=== PATIENT | female | born 1960 | race Caucasian/White ===

== ENCOUNTER 2020-01-14 15:14 | Outpatient (CLI) | payer OTHER, SELFPAY ==
--- NOTE | 2020-01-14 15:18 | MM_ITS ---
WS: [id number] BILATERAL DIGITAL SCREENING MAMMOGRAPHY WITH CAD CLINICAL INFORMATION: SCREENING HISTORY: Screening mammogram. No current complaints. COMPARISON: December 18, 2018 TECHNIQUE: Bilateral CC and MLO views. FINDINGS: Scattered fibroglandular densities bilaterally. No suspicious focal mass, asymmetry, calcifications, or architectural distortion. Stable left intramammary lymph node. No evidence of malignancy. MM/[id number] IMPRESSION: BI-RADS: 2-Benign FOLLOW UP: 1 Year Follow-up Recommend return to annual screening mammography.
== END 2020-01-14 15:15 | disposition home or self-care (01) ==
LOC: RADSHAW 15:14
PROVIDERS: Family Provider Family Medicine; PCP Family Medicine; Visit Provider Family Medicine
DX: Z12.31 Encounter for screening mammogram for malignant neoplasm of breast (principal)
CPT/HCPCS: 77067

== ENCOUNTER → 2020-05-23 10:13 | Outpatient (BNVA) | payer OTHER, SELFPAY | PROVIDERS: Family Provider Family Medicine; PCP Family Medicine; Visit Provider Dermatology | DX: D48.9 Neoplasm of uncertain behavior, unspecified (principal); L57.0 Actinic keratosis; L82.1 Other seborrheic keratosis; L98.9 Disorder of the skin and subcutaneous tissue, unspecified | CPT/HCPCS: 11102; 17000; 17003; 88305; 99203 ==

== ENCOUNTER → 2020-06-21 12:55 | Outpatient (BNVA) | payer OTHER, SELFPAY | PROVIDERS: Family Provider Family Medicine; PCP Family Medicine; Visit Provider Dermatology | DX: D03.9 Melanoma in situ, unspecified (principal); D48.9 Neoplasm of uncertain behavior, unspecified | CPT/HCPCS: 11602; 12034; 88304; 88305 ==

== ENCOUNTER → 2020-07-06 08:41 | Outpatient (BNVA) | payer OTHER, SELFPAY | PROVIDERS: Family Provider Family Medicine; PCP Family Medicine; Visit Provider Dermatology | DX: Z48.02 Encounter for removal of sutures (principal) | CPT/HCPCS: 99212 ==

== ENCOUNTER → 2020-07-12 07:59 | Outpatient (BNVA) | payer OTHER, SELFPAY | PROVIDERS: Family Provider Family Medicine; PCP Family Medicine; Visit Provider Dermatology | DX: Z48.02 Encounter for removal of sutures (principal) | CPT/HCPCS: 99024 ==

== ENCOUNTER 2021-02-14 14:44 | Outpatient (CLI) | payer OTHER, SELFPAY ==
--- NOTE | 2021-02-14 14:48 | MM_ITS ---
WS: [id number] BILATERAL SCREENING DIGITAL MAMMOGRAM WITH CAD HISTORY: SCREENING COMPARISON: 01/14/2020 12/18/2018 Bilateral CC and MLO views submitted. Computer aided detection analyzed. Breast composition: There are scattered areas of fibroglandular density. No suspicious masses, microc alcifications or architectural distortion. Small cluster of lymph nodes in the upper outer quadrant a re stable over multiple prior years. MM/[id number] IMPRESSION: BI-RADS: 2-Benign FOLLOW UP: 1 Year Follow-up
== END 2021-02-14 14:45 | disposition home or self-care (01) ==
LOC: RADSHAW 14:46
PROVIDERS: PCP Family Medicine; Visit Provider Family Medicine
DX: Z12.31 Encounter for screening mammogram for malignant neoplasm of breast (principal)
CPT/HCPCS: 77067

== ENCOUNTER → 2021-08-31 10:37 | Outpatient (BNVA) | payer OTHER, SELFPAY | PROVIDERS: PCP Family Medicine; Visit Provider Surgery | DX: Z20.822 Contact with and (suspected) exposure to COVID-19 (principal) | CPT/HCPCS: 87635 ==

== ENCOUNTER 2021-09-06 07:57 | Day surgery (SDC) | payer OTHER, SELFPAY ==
[2021-09-01 14:16] VITALS: BMI 30.5
--- NOTE | 2021-09-06 08:11 | ANES.PREANE2 ---
Pre-Anesthetic Assessment Pre-Anesthetic Assessment: Height/Weight: Height 1.7 m Weight 88.451 kg Preop Diagnosis: screening Proposed Procedure: Operation Date: 09/06/21 09:30 Proposed Procedures p Colonoscopy 15425 Z12.11(Not Applicable) - Vamsi Ahn MD Familial anesthetic complications: none Last intake: > 8 hrs Social: Social History: No alcohol and No tobacco Exam: Pre-Anes Outpt Exam: alert, oriented x 3, clear to auscultation bilaterally and regular rate & rhythm Airway: MP: 3 Dentition: Full GI: Comments: gastric sleeve Metabolic: Metabolic: Thyroid Anesthetic Plan: ASA status: 2 Anesthesia: MAC Risk of > 500 ml blood loss (7ml/kg in children): No PFSH Anesthesia PFSH: Medical History Thyroid crisis Surgical History H/O thyroidectomy H/O: hysterectomy Social History Smoking and tobacco status: never smoked Alcohol intake: never Data Anesthesia Cardiac Studies: No Data to Display
--- NOTE | 2021-09-06 08:28 | W.PM.OPSFHP ---
Same Day Surgery H&P Indication for Procedure/HPI DATE OF PROCEDURE: September 06, 2021 CHIEF COMPLAINT/INDICATIONFOR SURGICAL PROCEDURE: Screening colonoscopy PREOP DIAGNOSIS: screening PLANNED PROCEDRUE: Operation Date: 09/06/21 09:30 Proposed Procedures p Colonoscopy 93542 Z12.11(Not Applicable) - Vamsi Ahn MD This is a 61 years old female patient referred to my practice for screening colonoscopy, patient reports that she had one about 10 years ago and was reported as normal. Denies history of colon cancer and no bleeding per rectum. Intentional weight loss based on the fact that the patient had laparoscopic vertical sleeve gastrectomy per her description in [place] and her primary care provider is aware of that. ROS All systems have been reviewed negative except as per the above or per problem list Medications/Allergies* Home Medications Medication Instructions Recorded Confirmed Type estradiol 1 mg tablet 1 mg PO DAILY 05/23/20 09/01/21 History levothyroxine 125 mcg capsule 125 mcg PO DAILY 05/23/20 09/01/21 History Allergies/Adverse Reactions Allergy/AdvReac Type Severity Reaction Status Date / Time No Known Allergies Allergy Verified 02/28/21 15:20 Pertinent History/Comorbid Conditions* Medical History (Updated 10/18/20 @ 11:17 by Isabella Del Toro DO) Thyroid crisis Surgical History (Updated 10/18/20 @ 11:17 by Isabella Del Toro DO) H/O thyroidectomy H/O: hysterectomy Social History Smoking and tobacco status: never smoked Alcohol intake: never Pertinent Exam Findings alert, oriented x 3, clear to auscultation bilaterally, regular rate & rhythm and procedure specific exam findings (Abdominal examination nontender nondistended soft obese) Recommendations Surgery/Procedure today (Colonoscopy with possible biopsy) Other Plans: Plan of care; After thorough history and physical examination and reviewing the chart, plan to perform screening colonoscopy. I discussed with the patient in details the risks,benefits,alternatives and indications.The risk of aspiration, bleeding, soft tissue injury, perforation of the colon and other potential concomitant complications were explained to the patient in details,also the potential need for Laproscoy/Laparotomy to repair any related complications including but not limited to colectomy and or Closotomy.The patient understood this well and did agree to proceed. Rationale was carefully and clearly discussed with the patient.Appropriate informed consent have been reviewed and signed All questions have been answered and all concerns have been addressed to patient's satisfaction. Verbal and written Instructions were given to the patient for colonoscopy prep Coding Level of Care Code Acute Enterprise Systems Architect for Dada Nugent
[2021-09-06 08:42] VITALS: BP 137/87; PULSE 63; RESP 18; TEMP 36.3; O2SAT 100
[2021-09-06] MEDS: sodium chloride 0.9% 1,000 ML 30 ML IV (08:53)
[2021-09-06 10:01] VITALS: BP 104/74; PULSE 57; RESP 16; TEMP 36.1; O2SAT 99
[2021-09-06 10:17] VITALS: BP 102/56; PULSE 56; RESP 18; O2SAT 98
--- NOTE | 2021-09-06 14:31 | ANE.PACU2 ---
Inpatient post-anesthesia follow up: Airway intact: Yes Vital signs: Temperature 97 F Pulse Rate 56 Respiratory Rate 18 Blood Pressure 102/56 Pulse Oximetry 98 Oxygen Delivery Me thod Room Air Oxygen Flow Rate Fraction of Inspir ed Oxygen Hydration adequate: Yes Nausea and vomiting: No Pain level: 2 Mental status: Baseline
== END 2021-09-06 10:31 | disposition home or self-care (01) ==
PROVIDERS: PCP Family Medicine; Visit Provider Surgery
PROC: 0DJD8ZZ Inspection of Lower Intestinal Tract, Via Natural or Artificial Opening Endoscopic (ICD-10-PCS; CPT 45378; principal; 2021-09-06 09:30)
DX: Z12.11 Encounter for screening for malignant neoplasm of colon (principal)
CPT/HCPCS: 45380; 88305; 96360; J2704; J7030

== ENCOUNTER → 2022-03-06 15:15 | Outpatient (BNVA) | payer OTHER, SELFPAY | PROVIDERS: PCP Family Medicine; Referring Provider Family Medicine; Visit Provider Podiatrist Foot & Ankle Surgery | DX: M79.671 Pain in right foot (principal) | CPT/HCPCS: 73630 ==

== ENCOUNTER 2022-03-30 05:47 | Day surgery (SDC) | payer OTHER, SELFPAY ==
--- NOTE | 2022-03-10 | SCC_ITS ---
Procedure done: Flexor to extensor tendon transfer right foot second, third and fourth toes. CPT code 45098 x3 Proximal interphalangeal joint arthrodesis right second, third and fourth toes. CPT code 31791 x3 Fluoroscopic guidance was provided to Dr. Saeed. C-arm images of the right foot were saved for the patient's permanent record. [facility]ITAL[facility]
[2022-03-29 14:43] VITALS: BMI 28.1
--- NOTE | 2022-03-30 05:56 | P.HP_ITS ---
Providers/Chief Complaint Primary Care Provider: Eladio Guillermo MD History of Present Illness Shirley Jackson is a 62 year old female presents to with complaints of painful crossover toe right foot is more severe than left.? Her right third toe is overriding the fourth toe and she has pain at the hammertoe contractures of toes 2, 3 and 4 the right foot.? She has minor discomfort occasionally on hammertoes of the left foot this is of lesser concern to her.? 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 Still leads a very active lifestyle outside of work.? Her right foot pain is affecting her everyday quality of life and would like to discuss surgical correction.? She has a history of bunionectomy approximately 20 years ago left and right foot.? Patient denies any subjective nausea, vomiting, fever, chills, shortness of breath or chest pain.? Review of Systems General: Reports: 10 or more systems reviewed and unremarkable except in HPI and below Const: Denies: fever(s) or chills Eyes: Denies: change in vision Card: Denies: chest pain or palpitations Resp: Denies: dyspnea or productive cough GI: Denies: abdominal pain, nausea or vomiting : Denies: flank pain Musc: Reports: extremity pain, joint pain, joint stiffness, limited range of motion and deformity Skin/Breast: Reports: skin tenderness; Denies: rash Neuro: Reports: difficulty walking; Denies: numbness in extremities, sensory changes or frequent falls Psych: Denies: suicidal ideation Rick/Lymph: Denies: easy bruising Medications/Allergies Home Medications Medication Instructions Recorded Confirmed Last Taken Type estradiol 1 mg tablet (Estrace) 1 mg PO DAILY 05/23/20 03/29/22 09/04/21 History levothyroxine 125 mcg capsule 125 mcg PO DAILY 05/23/20 03/29/22 09/04/21 History Allergies Allergy/AdvReac Type Severity Reaction Status Date / Time oxycodone [From Percocet] AdvReac ADR-Vomitin Verified 03/29/22 14:39 g PFSH PFSH: Medical History Anal polyp Thyroid crisis Surgical History H/O thyroidectomy H/O: hysterectomy S/P gastric sleeve procedure Social History Smoking and tobacco status: never smoked Alcohol intake: never Vital Signs Weight: Weight last 48 hrs Weight 180 lb Physical Exam Narrative: EXAM NARRATIVE: Patient is alert and oriented ?3 and in no acute distress.? The following is a focused bilateral lower extremity exam. VASCULAR: Dorsalis pedis and posterior tibial arteries palpable +2.? Capillary refill time less than 3 seconds to the distal hallux bilaterally. Calf is supple and nontender proximally and distally.? No pedal edema appreciated.? Pedal hair growth present. NEUROLOGICAL: Epicritic and protopathic sensations grossly intact to the lower extremities.? +2 Achilles tendon reflex noted bilaterally.? Negative Tinel sign upon percussion of lower extremity nerves. DERMATOLOGICAL: Lower extremity skin is well-hydrated, normal texture and turgor.? There are no open sores or lesions noted to the lower extremities.? No erythema or ecchymosis present to the bilateral legs and feet.? Cicatrix to the first metatarsophalangeal joint left and right that is well-healed. MUSCULOSKELETAL: Pain to palpation at right second, third and fourth toe.? Right third toe overrides the fourth toe.? Nonreducible hammertoe contracture with triplane component to the right second, third and fourth toe.? Hammertoe contracture of the right fifth toe that is nonpainful.? Mild hallux valgus.? No recurrence of bunion deformity.? Mild collapse of the medial longitudinal arch which is recreated with elevation of the hallux. CARDIOVASCULAR: S1, S2, normal rate, normal rhythm. Dorsalis pedis and posterior tibial arteries palpable. LUNGS: Clear to auscltation, no use of acessory muscles, no crackles or wheezes. A&P Assessment and plan (1) Hammertoe, bilateral: Status: Acute (2) Crossover toe deformity of right foot: Status: Acute (3) Right foot pain: Status: Acute Plan Pleasant 61-year-old female presents as a new patient for surgical consultation of right painful hammertoe deformities toes 2, 3 and 4.? Has exhausted conservative measures prior to seeking surgical consultation, wears wide accommodative shoes, utilizing spacers and padding, wears orthopedic sandals.? Pain is been progressive especially the right third toe and is now affecting her overall quality of life.? She would like to discuss surgical approach, risks and benefits.? Recommended proximal interphalangeal joint arthroplasty with implant and flexor tendon transfer.? 6 weeks protected weightbearing in a cam boot with low levels of activity and would likely require K wire fixation that can be removed in clinic approximately 4 to 6 weeks postoperatively.? Patient would like to proceed with surgical intervention. Discussed risks include but not limited to pain, bleeding, numbness, infection, hardware failure, delayed union, malunion, nonunion, overcorrection of deformity, under correction deformity, numbness, chronic swelling and need for further surgical intervention. Also risk for deep vein thrombosis, heart attack, stroke and . Patient n.p.o. since midnight. Wishes to proceed. Right second, third and fourth hammertoe correction. joseph POTTS, supine, 90 minutes Coding Level of Care Code Acute Fence Making Machine Operator for g Fwd Diagnoses Hammertoe, bilateral M20.41; M20.42 Crossover toe deformity of right foot M20.5X1 Right foot pain M79.671
[2022-03-30 06:00] VITALS: BP 144/82; PULSE 61; RESP 18; TEMP 36.5; O2SAT 100
--- NOTE | 2022-03-30 06:05 | W.PM.OPSUD ---
Surgery/Procedure H&P Update DATE OF PROCEDURE: March 30, 2022 DATE H&P PERFORMED: 03/30/22 CHANGES TO PREVIOUS DOCUMENTATION: None PREOP DIAGNOSIS: Right second, third and fourth hammertoe PLANNED PROCEDURE: Operation Date: 03/30/22 07:00 Proposed Procedures p Hammertoe correction second, third, fourth toes right foot.[id number], 10266x9, M20.41,M20.5X1(Right) - Jorge Alberto Saeed DPM
[2022-03-30] MEDS: sodium chloride 0.9% 1,000 ML 30 ML IV (06:10)
[2022-03-30] MEDS: CELEcoxib 200 mg Capsule 400 MG PO (06:10)
[2022-03-30] MEDS: gabapentin 300 mg Capsule PO (06:11)
--- NOTE | 2022-03-30 06:52 | ANES.PREANE2 ---
Pre-Anesthetic Assessment Height/Weight: Height 1.7 m Weight 81.647 kg Temp Pulse Resp BP Pulse Ox 97.7 F 61 18 144/82 100 03/30/22 06:00 03/30/22 06:00 03/30/22 06:00 03/30/22 06:00 03/30/22 06:00 Preop Diagnosis: Right second, third and fourth hammertoe Operation Date: 03/30/22 07:00 Proposed Procedures p Hammertoe correction second, third, fourth toes right foot.[id number], 25814m2, M20.41,M20.5X1(Right) - Jorge Alberto Saeed DPM Familial anesthetic complications: None Was Beta Michael taken within 24 hours: N/A Was Clonidine taken within 24 hours: N/A Last intake: Intake Last Liquid Date 03/29/22 Last Liquid Time 19:00 Last Solid Date 03/29/22 Last Solid Time 19:00 Social No alcohol and No tobacco Exam alert, oriented x 3, clear to auscultation bilaterally and regular rate & rhythm Airway Submandibular: within normal limits Cervical ROM: within normal limits Mallampati: Class I Dentition: full History/ROS No significant complaints Pulmonary None reported CV/HEM None reported None reported Hepatic None reported GI s/p gastric sleeve Metabolic Thyroid Disease (s/p thyroidectomy ) [facility] [place]/[facility] None reported Neuropsych None reported Anesthetic Plan ASA status: 2 Anesthesia: Anesthesia Evaluation and General Other: We discussed risk and benefits of general anesthesia including PONV, sore throat (sometimes severe), corneal abrasion, positioning and peripheral nerve injuries, life threatening allergic reaction, post operative ICU admission requiring prolonged intubation, stroke, heart attack, , and rare incidences of recall. Patient consents to proceed with general anesthesia. Risk of > 500 ml blood loss (7ml/kg in children): No Medications/Allergies Home Medications Medication Instructions Recorded Confirmed Last Taken Type estradiol 1 mg tablet (Estrace) 1 mg PO DAILY 05/23/20 03/29/22 03/29/22 History levothyroxine 125 mcg capsule 125 mcg PO DAILY 05/23/20 03/29/22 03/29/22 History hydrocodone 10 mg-acetaminophen 1 tab PO Q4H 7 Days #30 tab 03/30/22 Unknown Rx 325 mg tablet Allergies Allergy/AdvReac Type Severity Reaction Status Date / Time oxycodone [From Percocet] AdvReac ADR-Vomitin Verified 03/29/22 14:39 g Current Medications Generic Name Dose Route Start Last Admin Trade Name Freq PRN Reason Stop Dose Admin Sodium Chloride 1,000 mls @ 30 mls/hr 03/30/22 06:00 03/30/22 06:10 Sodium Chloride 0.9% IV 03/31/22 05:59 30 mls/hr .Q24H YARON Administration PFSH Anesthesia Medical History Anal polyp Thyroid crisis Surgical History H/O thyroidectomy H/O: hysterectomy S/P gastric sleeve procedure Social History Smoking and tobacco status: never smoked Alcohol intake: never Data Anesthesia Cardiac Studies: No Data to Display
[2022-03-30] MEDS: lidocaine 2% INJ 20 mL INJECTION (07:10)
--- NOTE | 2022-03-30 08:00 | XR_ITS ---
WS: [id number] Exam: XR foot RT min 3V* [id number] Date/Time of Exam: 03/30/2022 8:00 AM Reason For Exam: Post op Comparison 03/06/2022. There are joint replacements involving the PIP joints of the second third and fourth toes. Alignment appears satisfactory based on images presented. A healed osteotomy of the first metatarsal with screw fixation noted. Remaining aspects of the right foot are intact. XR/XR foot RT min 3V* [id number] IMPRESSION: 1. Stable-appearing postoperative changes of the foot as detailed above.
[2022-03-30 08:14] VITALS: BP 94/61; PULSE 59; RESP 16; TEMP 36.3; O2SAT 97
[2022-03-30 08:27] VITALS: BP 107/53; PULSE 53; RESP 18; TEMP 36.1; O2SAT 97
--- NOTE | 2022-03-30 08:53 | ANE.PACU2 ---
Inpatient post-anesthesia follow up: Airway intact: Yes Vital signs: Temperature 97.0 F Pulse Rate 53 Respiratory Rate 18 Blood Pressure 107/53 Pulse Oximetry 97 Oxygen Delivery Me thod Room Air Oxygen Flow Rate Fraction of Inspir ed Oxygen Hydration adequate: Yes Nausea and vomiting: No Pain level: 1 Mental status: Baseline
[2022-03-30 08:56] VITALS: BP 108/71; PULSE 69; RESP 18; O2SAT 97
--- NOTE | 2022-04-03 12:26 | P.OP_ITS ---
Operative Report Date of procedure: March 30, 2022 Pre-op diagnosis: Hammertoe deformity right second, third and fourth toes. Post-op diagnosis: Same Post-op findings: None Procedure done: Flexor to extensor tendon transfer right foot second, third and fourth toes. CPT code 98541 x3 Proximal interphalangeal joint arthrodesis right second, third and fourth toes. CPT code 24842 x3 Implants: Kanab 28 2.75 mm hammer tube with 10 degree angle x3. 4-0 nylon, 4-0 Vicryl. Specimens removed/disposition: None Pathology: None Surgeon: Jorge Alberto Saeed D.P.M. Property Insurance Agent: Jeromy Estimated blood loss: 5 See intraoperative documentation IV fluids: None Urine output: None Complications: None Findings: None Brief History: Pleasant 61-year-old female presents as a new patient for surgical consultation of right painful hammertoe deformities toes 2, 3 and 4.? Has exhausted conservative measures prior to seeking surgical consultation, wears wide accommodative shoes, utilizing spacers and padding, wears orthopedic sandals.? Pain is been progressive especially the right third toe and is now affecting her overall quality of life.? She would like to discuss surgical approach, risks and benefits.? Recommended proximal interphalangeal joint arthroplasty with implant and flexor tendon transfer.? 6 weeks protected weightbearing in a cam boot with low levels of activity and would likely require K wire fixation that can be removed in clinic approximately 4 to 6 weeks postoperatively.? Patient would like to proceed with surgical intervention.? Discussed risks include but not limited to pain, bleeding, numbness, infection, hardware failure, delayed union, malunion, nonunion, overcorrection of deformity, under correction deformity, numbness, chronic swelling and need for further surgical intervention.? Also risk for deep vein thrombosis, heart attack, stroke and .? Patient n.p.o. since midnight.? Wishes to proceed. Procedure: Under mild sedation the patient was brought to the operating room and remained on the gurney in supine position. Timeout was performed. Anesthesia was then administered by the anesthesia service. Local anesthesia was injected by myself consisting of one-to-one mixture 2% lidocaine and 0.25% Marcaine plain total of 30 cc utilized for a second, third and fourth ray block to the right foot. We ll-padded pneumatic tourniquet applied to the right ankle. The right lower extremity was scrubbed, prepped and draped utilizing normal aseptic technique. Right foot was then exanguinated with a Esmarch bandage and the tourniquet inflated to 250 mmHg. Attention was directed to the dorsal aspect of the right second, third and fourth toes where a linear longitudinal incision was made directly over the proximal interphalangeal joint coursing proximally to the metatarsal phalangeal joint to the right second, third and fourth toes respectively. Dissection carried down to the extensor tendon dorsally at the right second, third and fourth toes utilizing a combination of blunt and sharp technique. Care was taken to retract and preserve neurovascular and tendinous structures. All bleeders were ligated and cauterized as necessary. A transverse tenotomy of the extensor tendons were is performed at the right second, third and fourth toes at the level of the proximal interphalangeal joint followed by resection of the proximal phalanx head of the right second, third and fourth proximal phalanx and denuding of the cartilage surface of the intermediate phalanx base utilizing a rongeur of the right second, third and fourth intermediate phalanx base. Incisions were flushed with saline solution. The arthrodesis site was then retracted and flexor digitorum brevis tendon was identified and longitudinally to gain access to the flexor digitorum longus tendon which was transected at its most distal margin at the right second, third and fourth toes. The flexor digitorum longus tendon was then split longitudinally proximally and brought around the phalanx of the second, third and fourth toes respectively and sutured back together successfully transferring the flexor digitorum longus tendon to the extensor tendon position to address flexor stabilization and underlying mechanical root of the hammertoe deformity. This also helped the sagittal plane deformity of digits 2, 3 and 4 the right foot. Tendons of the second, third and fourth tendon transfers sutured with 4-0 nylon with excellent tension and correction of the sagittal plane component of hammertoes 2, 3 and 4 of the right foot. Incisions were then flushed again with saline solution. Next utilizing standard technique and manufacture recommendations a Kanab 28 hammer tube 2.75 mm in diameter with 10 degree angle was inserted in the proximal phalanx head followed by impaction of the intermediate phalanx with excellent bony apposition and compression noted at the proximal interphalangeal joint arthrodesis site of the right second, third and fourth toes. Second, third and fourth toes of the right foot were appreciated to be in a more anatomically correct position both intraoperatively with simulated weightbearing on flat weightbearing surface and with fluoroscopy in all 3 planes noting that intramedullary placement was excellent on right second, third and fourth toes. Further irrigation was performed with saline solution followed by closure in a layered fashion. The extensor tendons were reapproximated utilizing 4-0 Vicryl at the second, third and fourth toes of the right foot. Skin was then closed with 4-0 nylon. Incisions of the right second, third and fourth toes were dressed with Adaptic, sterile 4 x 4, Kerlix and Bridger wrap. Cam boot was applied and tourniquet was deflated with a prompt hyperemic response noted to all distal digits of the right foot. Patient tolerated the procedure and anesthesia well and was transferred to the PACU with vital signs stable and vascular status intact. Following a period of postop monitoring she will be discharged home may be weightbearing for transfers and short periods of time with a cam boot at all times. Will follow-up for her first dressing change in podiatry clinic next week.
== END 2022-03-30 09:10 | disposition home or self-care (01) ==
PROVIDERS: PCP Family Medicine; Visit Provider Podiatrist Foot & Ankle Surgery
PROC: (CPT 28285; principal; 2022-03-30 07:00)
DX: M20.41 Other hammer toe(s) (acquired), right foot (principal); M20.5X1 Other deformities of toe(s) (acquired), right foot
CPT/HCPCS: 27690 ×4; 73630; 76000; C1713; J2704; J3010; J3490; J7030

== ENCOUNTER → 2022-04-12 12:36 | Outpatient (BNVA) | payer OTHER, SELFPAY | PROVIDERS: PCP Family Medicine; Visit Provider Podiatrist Foot & Ankle Surgery | DX: Z98.890 Other specified postprocedural states (principal) | CPT/HCPCS: 73630 ==

== ENCOUNTER 2022-04-17 14:59 | Outpatient (CLI) | payer OTHER, SELFPAY ==
--- NOTE | 2022-04-17 15:06 | MM_ITS ---
WS: [id number] BILATERAL 3D TOMOSYNTHESIS DIGITAL SCREENING MAMMOGRAPHY WITH CAD CLINICAL INFORMATION: SCREEN HISTORY: Screening mammogram. No current complaints. COMPARISON: February 14, 2021 TECHNIQUE: Bilateral CC and MLO views. FINDINGS: Scattered fibroglandular densities bilaterally. Coarse calcifications subareolar RIGHT breast. No stephany picious focal mass, asymmetry, calcifications, or architectural distortion. No evidence of malignancy . MM/[place] [id number] IMPRESSION: BI-RADS: 2-Benign FOLLOW UP: 1 Year Follow-up Recommend return to annual screening mammography.
== END 2022-04-17 15:00 | disposition home or self-care (01) ==
LOC: RAD 15:00
PROVIDERS: PCP Family Medicine; Visit Provider Family Medicine
DX: Z12.31 Encounter for screening mammogram for malignant neoplasm of breast (principal)
CPT/HCPCS: 77063; 77067

== ENCOUNTER → 2022-04-25 14:42 | Outpatient (BNVA) | payer OTHER, SELFPAY | PROVIDERS: PCP Family Medicine; Visit Provider Podiatrist Foot & Ankle Surgery | DX: Z98.890 Other specified postprocedural states (principal) | CPT/HCPCS: 73630 ==

== ENCOUNTER → 2022-05-10 12:52 | Outpatient (BNVA) | payer OTHER, SELFPAY | PROVIDERS: PCP Family Medicine; Visit Provider Podiatrist Foot & Ankle Surgery | DX: Z98.890 Other specified postprocedural states (principal) | CPT/HCPCS: 73630 ==

== ENCOUNTER → 2022-06-21 12:55 | Outpatient (BNVA) | payer OTHER, SELFPAY | PROVIDERS: PCP Family Medicine; Visit Provider Podiatrist Foot & Ankle Surgery | DX: Z98.890 Other specified postprocedural states (principal) | CPT/HCPCS: 73630 ==

== ENCOUNTER 2023-04-24 15:20 | Outpatient (CLI) | payer OTHER, SELFPAY ==
--- NOTE | 2023-04-24 15:27 | MM_ITS ---
WS: [id number] BILATERAL 3D TOMOSYNTHESIS DIGITAL SCREENING MAMMOGRAPHY WITH CAD CLINICAL INFORMATION: SCREENING HISTORY: Screening mammogram. No current complaints. COMPARISON: 2021 TECHNIQUE: Bilateral CC and MLO views. FINDINGS: Scattered fibroglandular densities bilaterally. No suspicious focal mass, asymmetry, calcifications, or architectural distortion. No evidence of malignancy. Stable coarse calcifications subareolar RIGHT breast. MM/[place] [id number] IMPRESSION: BI-RADS: 2-Benign FOLLOW UP: 1 Year Follow-up Recommend return to annual screening mammography.
== END 2023-04-24 15:21 | disposition home or self-care (01) ==
PROVIDERS: PCP Family Medicine; Visit Provider Family Medicine
DX: Z12.31 Encounter for screening mammogram for malignant neoplasm of breast (principal)
CPT/HCPCS: 77063; 77067

== ENCOUNTER → 2024-04-07 07:47 | Outpatient (BNVA) | payer OTHER, SELFPAY | PROVIDERS: PCP Family Medicine; Referring Provider Family Medicine; Visit Provider Student in an Organized Health Care Education/Training Program | DX: M25.511 Pain in right shoulder (principal); M75.41 Impingement syndrome of right shoulder | CPT/HCPCS: 73030 ==

== ENCOUNTER 2024-04-29 10:13 | Outpatient (CLI) | payer OTHER, SELFPAY ==
--- NOTE | 2024-04-29 10:18 | MM_ITS ---
WS: [id number] BILATERAL SCREENING DIGITAL TOMOSYNTHESIS MAMMOGRAM WITH CAD HISTORY: SCREENING COMPARISON: 04/24/2023, 04/17/2022 and 02/14/2021 Bilateral CC and MLO views with tomosynthesis and synthetic mammography submitted. Computer aided det ection analyzed. Breast composition: There are scattered areas of fibroglandular density. No suspicious masses, microc alcifications or architectural distortion. Benign dystrophic calcification in the anterior RIGHT [address]. No suspicious mass or calcification. MM/[place] [id number] IMPRESSION: BI-RADS: 2-Benign FOLLOW UP: 1 Year Follow-up
== END 2024-04-29 10:14 | disposition home or self-care (01) ==
PROVIDERS: PCP Family Medicine; Visit Provider Family Medicine
DX: Z12.31 Encounter for screening mammogram for malignant neoplasm of breast (principal)
CPT/HCPCS: 77063; 77067

== ENCOUNTER → 2024-06-23 08:03 | Outpatient (BNVA) | payer OTHER, SELFPAY | PROVIDERS: PCP Family Medicine; Visit Provider Family Medicine | DX: E11.9 Type 2 diabetes mellitus without complications (principal); E03.9 Hypothyroidism, unspecified; M17.12 Unilateral primary osteoarthritis, left knee | CPT/HCPCS: 80053; 80061; 84443 ==

== ENCOUNTER → 2024-07-21 08:52 | Outpatient (BNVA) | payer OTHER, SELFPAY | PROVIDERS: PCP Family Medicine; Visit Provider Physician Assistant | DX: M17.12 Unilateral primary osteoarthritis, left knee (principal); M25.561 Pain in right knee; M25.562 Pain in left knee | CPT/HCPCS: 73560; 73565 ==

== ENCOUNTER 2024-07-21 14:46 | Outpatient (CLI) | payer OTHER, SELFPAY | END 2024-07-21 14:47 | disposition home or self-care (01) | LOC: SPT 14:48 | PROVIDERS: PCP Family Medicine; Visit Provider Physician Assistant | DX: Z46.89 Encounter for fitting and adjustment of other specified devices (principal); M17.12 Unilateral primary osteoarthritis, left knee | CPT/HCPCS: 97760; L1851 ==

== ENCOUNTER 2024-08-18 15:49 | Outpatient (CLI) | payer OTHER, SELFPAY ==
--- NOTE | 2024-08-18 16:00 | MR_ITS ---
WS: [id number] MRI RIGHT SHOULDER NONCONTRAST TECHNIQUE: Sagittal T2, coronal T1, T2 and proton density imaging. Axial gradient PDE imaging. CLINICAL INFORMATION: right shoulder pain COMPARISON: None. FINDINGS: Moderate degenerative arthritis AC joint with moderate downsloping acromion. Loss of subacromial spac e. Chronic thinning with high-grade tear of the distal supraspinatus. Tendon appears retracted to the AC joint. Partial-thickness tear involving the infraspinatus with chronic thinning. Tendinopathy inf raspinatus. Teres minor appears intact. Tendinopathy with partial intrasubstance tear involving the subscapularis tendon. Biceps tendon absen t from the proximal bicipital groove likely due to chronic tear. Tiny biceps tendon remnant distally. Moderate degenerative narrowing glenohumeral articulation. Degenerative fraying of the glenoid labru m. Atrophy with fatty replacement of the subscapularis muscle belly. Fatty atrophy of the supraspinat us infraspinatus and teres minor. MR/MR shoulder RT wo con* [id number] IMPRESSION: 1. Moderate degenerative arthritis AC joint with moderate downsloping acromion . Loss of the subacromial space. 2. Chronic thinning of the distal supraspinatus and infraspinatus. High-grade tear of the distal supraspinatus extending to the myotendinous junction. Distal tendon appears retracted to the AC joint 3. Tendinopathy infraspinatus with partial intrasubstance tear extending to th e myotendinous junction. Distal infraspinatus appears intact. 4. Tendinopathy with partial intrasubstance tear of the subscapularis. Fatty a trophy of the subscapularis muscle. 5. Tiny biceps remnant in the bicipital groove likely due to chronic tear. Poo rly visualized intra-articular biceps tendon.
== END 2024-08-18 15:50 | disposition home or self-care (01) ==
LOC: RAD 15:50
PROVIDERS: PCP Family Medicine; Visit Provider Physician Assistant
DX: M75.41 Impingement syndrome of right shoulder (principal); M19.011 Primary osteoarthritis, right shoulder; M75.91 Shoulder lesion, unspecified, right shoulder; M75.112 Incomplete rotator cuff tear or rupture of left shoulder, not specified as traumatic
CPT/HCPCS: 73221

== ENCOUNTER 2024-08-21 15:34 | Outpatient (CLI) | payer OTHER, SELFPAY ==
--- NOTE | 2024-08-21 15:35 | XRR_ITS ---
PROCEDURE INFORMATION: Exam: XR Right Foot Exam date and time: 08/21/2024 3:42 PM Age: 64 years old Clinical indication: Pain; Foot; Right; Prior surgery; Surgery date: 6+ months; Surgery type: Hammertoe, bunionectomy; Patient HX: RT 2nd/3rd digits deformed post hammertoe repair x 2yrs ago; Additional info: M79.671 - pain in right foot, weight bearing or non weight bearing is fine. TECHNIQUE: Imaging protocol: Radiologic exam of the right foot. Views: 3 or more views. COMPARISON: CR XR foot RT min 3V* [id number] 06/21/2022 1:00 PM FINDINGS: Bones/joints: Stable changes consistent with a previous osteotomy at the right 1st metatarsal and stable. No evidence for loosening of the surgical hardware. Stable changes consistent with prior joint replacement at the 2nd, 3rd, and 4th PIP joints. No evidence for loosening of the surgical hardware. No acute fracture. Bones are mildly osteopenic. There is mild lateral subluxation at the 3rd MTP joint on the right foot with overlap of the 3rd and 4th toes. It is uncertain whether this may be due to ligamentous trauma, ligamentous laxity, or postsurgical changes. Soft tissues: No soft tissue swelling. No radiopaque foreign body. XR/XR foot RT min 3V* [id number] IMPRESSION: 1. No acute fracture of the right foot. Followup radiographs recommended in 7-14 days if clinical concern for fracture persists. 2. Stable changes consistent with a previous osteotomy at the right 1st metatarsal and stable. No evidence for loosening of the surgical hardware. 3. Stable changes consistent with prior joint replacement at the 2nd, 3rd, and 4th PIP joints. No evidence for loosening of the surgical hardware. 4. There is mild lateral subluxation at the 3rd MTP joint on the right foot with overlap of the 3rd and 4th toes. It is uncertain whether this may be due to ligamentous trauma, ligamentous laxity, or postsurgical changes. 5. Incidental/nonacute findings are listed in the report.
== END 2024-08-21 15:35 | disposition home or self-care (01) ==
LOC: RAD 15:35
PROVIDERS: PCP Family Medicine; Visit Provider Podiatrist Foot & Ankle Surgery
DX: M79.671 Pain in right foot (principal); Z98.890 Other specified postprocedural states
CPT/HCPCS: 73630

== ENCOUNTER 2024-08-28 06:40 | Day surgery (SDC) | payer OTHER, SELFPAY ==
[2024-08-28] VITALS (7 sets, daily range): BP systolic 99–148; BP diastolic 59–94; PULSE 49–65; RESP 12–18; TEMP 36.1–36.8; O2SAT 96–100; BMI 29.6
--- NOTE | 2024-08-28 06:54 | P.HPUD_ITS ---
Surgery/Procedure H&P Update DATE OF PROCEDURE: August 28, 2024 DATE H&P PERFORMED: 08/17/24 H&P UPDATE INFORMATION: I have reviewed H&P completed within last 30 days, I have examined patient prior to procedure, No changes to prior documentation and H&P is in [facility] EMR on date indicated PREOP DIAGNOSIS: Right third and fourth hammertoe PLANNED PROCEDURE: Operation Date: 08/28/24 08:00 Proposed Procedures p Hardware removal Right third toe, Hardware removal Right fourth toe(Right) - Jorge Alberto Saeed DPM s Right third hammertoe correction and Right fourth hammertoe correction(Right) - Jorge Alberto Saeed DPM
--- NOTE | 2024-08-28 06:55 | P.OP_ITS ---
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 CPT code 97693 2) hardware removal right fourth toe. CPT code 07652 3) right fourth hammertoe correction CPT code 33780 Surgeon: Jorge Alberto Saeed DPM Heavy [employer] Operator: Florecita Pinzno Estimated blood loss: 2 64 minutes IV fluids: See intraoperative documentation Urine output: None Complications: None Brief History: Weightbearing x-ray right foot 3 views taken on August 21, 2024. Per my interpretation intramedullary implant at the right second, third and fourth proximal interphalangeal joints of the right foot as well as retained screw at diaphysis of right first metatarsal. There is transverse deviation of the right third toe deviating laterally and transverse deviation of the right fourth toe deviating medially these toes are crossing over an x-ray where fourth toe under rides the third toe, contracture at the distal interphalangeal joint in the sagittal plane right third and fourth toes. The patient is a 64-year-old female presenting for a surgical consultation focused on the correction of hammer toe deformities affecting the right third and fourth toes. These deformities have been present for approximately three years, with a noticeable worsening in the alignment where the third toe registers a propensity to ascend over neighboring digits, while the fourth toe presents a marked overlapping tendency?crisscrossing beneath adjacent toes. These anatomical aberrations were previously managed concurrently three years prior during corrective surgery addressing simultaneous afflictions within the affected foot, including multi-toe intervention attempts. Initially, the post-surgical outcomes seemed satisfactory. However, over the intervening period, the gradual resumption of wayward digital positioning necessitates intervention, primarily due to the third toe's misalignment, which appears prominently burdensome to the patient's activities. The current state of the toe deformities affects her ability to engage comfortably in occupational activities due to footwear challenges necessitating rehabilitation of the primary problematic toes. Treatment options including pins, screws, or alternative implant solutions are discussed. The preferred plan involves using screws, favored for predictably achieving alignment despite potential concerns for an unnatural straight appearance post-operatively. The prior surgical intervention history highlights an absence of complications or significant adverse events during that recovery span. Procedure: Under mild sedation the patient was brought to the operating room and placed onto the operating table in supine position. A timeout was performed. Anesthesia was then administered by the anesthesia service. Local anesthesia was injected by myself consisting of 20 cc of 0.5% Marcaine plain in a right third and fourth ray block fashion and 20 cc of Exparel subcutaneously in a grid like fashion proximal to the operative site. Well-padded pneumatic tourniquet applied to the right ankle. The right lower extremity was scrubbed, prepped and draped utilizing normal aseptic technique. Attention was directed to the dorsal aspect of the right third and fourth toes where a linear longitudinal incision was made with a #15 blade through skin with dissection carried down to the layer extensor digitorum longus and brevis which were transected at the level of the proximal interphalangeal joint both at the right third and fourth toes, sagittal saw was utilized to make a osteotomy at the interval between the intermediate and proximal phalanx through the intramedullary implant right third and fourth toes. Able to explant the distal stem of the fourth toe that was in the intermediate phalanx, had to drill through the proximal portion of the implant of the fourth toe and drill through the entire implant of the third toe as this was integrated into bone and would cause more damage to excavate around and remove then to lead implanted and drill through as it was cannulated. Osteotomies were performed at the head of the proximal phalanx perpendicular to its longitudinal axis at both the right third and fourth toes. Right third and fourth toe were then held rectus in all 3 planes and fixated with intramedullary placement of a Tennille 2 mm screw not violating the metatarsal phalangeal joint this was confirmed with intraoperative C arm. Capsular tendon balancing performed at the left third toe to allow it to be rectus at the metatarsal phalangeal joint, capsular release laterally and extensor tendon lengthening and the K wire was left intramedullary and through the screw which was cannulated c rossing the metatarsal phalangeal joint to maintain position which will be removed in clinic in the upcoming weeks. K wire was trimmed and covered with a Efrain ball. Incisions were irrigated with copious amounts of sterile send solution. Extensor tendons at the third and fourth toe right foot were reapproximated with 4-0 Vicryl, subcutaneous tissue with 4-0 Vicryl and skin with 4-0 nylon at both incisions. Incisions and dressed with Adaptic, sterile 4 x 4, Kerlix and Bridger wrap. Postop shoe was applied to the right foot. Tourniquet was deflated and a prompt hyperemic response was noted to the distal digits of the right foot. Patient tolerated the procedure and anesthesia well and was transferred to the PACU with vital signs stable and vascular status intact. Following a period of postoperative monitoring she will be discharged home may be protected weightbearing with a postop shoe is to elevate while resting. Was given at home care instructions and scheduled follow-up as well as myself number to contact me with any postoperative questions or concerns.
[2024-08-28] MEDS: gabapentin 300 mg Capsule PO (07:09)
[2024-08-28] MEDS: CELEcoxib 200 mg Capsule 400 MG PO (07:09)
[2024-08-28] MEDS: sodium chloride 0.9% 1,000 ML 30 ML IV (07:09)
--- NOTE | 2024-08-28 07:41 | P.ANESASSM_ITS ---
Pre-Anesthetic Assessment Height/Weight: Height 1.7 m Weight 85.729 kg Temp Pulse Resp BP Pulse Ox O2 Del Method 98.2 F 65 18 148/88 96 Room Air 08/28/24 07:00 08/28/24 07:00 08/28/24 07:00 08/28/24 07:00 08/28/24 07:00 08/28/24 07:00 Preop Diagnosis: Right third and fourth hammertoe Operation Date: 08/28/24 08:00 Proposed Procedures p Hardware removal Right third toe, Hardware removal Right fourth toe(Right) - Jorge Alberto Saeed DPM s Right third hammertoe correction and Right fourth hammertoe correction(Right) - Jorge Alberto Saeed DPM Familial anesthetic complications: None Was Beta Michael taken within 24 hours: N/A Was Clonidine taken within 24 hours: N/A Last intake: Intake Last Liquid Date 08/27/24 Last Liquid Time 20:30 Last Solid Date 08/27/24 Last Solid Time 19:00 Social No alcohol and No tobacco Exam alert, oriented x 3, clear to auscultation bilaterally and regular rate & rhythm Airway Mallampati: Class II Dentition: other (three temporary teeth) Metabolic Thyroid Disease Anesthetic Plan ASA status: 2 Anesthesia: MAC Risk of > 500 ml blood loss (7ml/kg in children): No Medications/Allergies Home Medications Medication Instructions Recorded Confirmed Last Taken Type levothyroxine 150 mcg tablet 150 mcg PO DAILY #30 tabs 06/30/24 08/28/24 08/27/24 Rx glucosimine 1,200 mg PO DAILY 07/21/24 08/28/24 08/27/24 History left knee medial cook railroad brace #1 ea 07/21/24 08/17/24 Unknown Rx estradiol 1 mg tablet 1 mg PO DAILY 08/27/24 08/28/24 08/27/24 History hydrocodone 10 mg-acetaminophen 1 tab PO Q6H PRN pain 7 days #28 08/28/24 Unknown Rx 325 mg tablet tabs Allergies Allergy/AdvReac Type Severity Reaction Status Date / Time oxycodone [From Percocet] AdvReac ADR-Vomitin Verified 08/28/24 06:52 g Current Medications Generic Name Dose Route Start Last Admin Trade Name Freq PRN Reason Stop Dose Admin Sodium Chloride 1,000 mls @ 30 mls/hr 08/28/24 07:00 08/28/24 07:09 Sodium Chloride 0.9% IV 08/29/24 06:59 30 mls/hr .Q24H YARON Administration PFSH Anesthesia Medical History Osteoarthritis of left knee Hypothyroid Anal polyp Thyroid crisis Surgical History S/P gastric sleeve procedure H/O thyroidectomy H/O: hysterectomy Social History Smoking and tobacco/nicotine status: never used tobacco/nicotine Alcohol intake: never Data Anesthesia Cardiac Studies: No Data to Display
[2024-08-28] MEDS: ceFAZolin 2,000 mg SDV 2000 MG IVP (07:58)
--- NOTE | 2024-08-28 08:00 | XR_ITS ---
WS: [email or web address] Exam: XR foot RT 2V [id number] Date/Time of Exam: 08/28/2024 8:00 AM Reason For Exam: Hardware removal of right fourth toe partial AP and lateral C-arm images of the RIGHT foot are submitted. Images were obtained for intraoperative purposes.
[2024-08-28] MEDS: BUPivacaine 0.5% INJ 10 mL 20 ML INJECTION (08:32)
[2024-08-28] MEDS: BUPivacaine liposome 13.3 mg/mL SDV 20 mL 266 MG INJECTION (08:32)
--- NOTE | 2024-08-28 10:20 | ANE.PACU2 ---
Inpatient post-anesthesia follow up: Airway intact: Yes Vital signs: Temperature 97.3 F Pulse Rate 53 Respiratory Rate 16 Blood Pressure 124/66 Pulse Oximetry 100 Oxygen Delivery Me thod Room Air Oxygen Flow Rate Fraction of Inspir ed Oxygen Hydration adequate: Yes Nausea and vomiting: No Pain level: 1 Mental status: Baseline
== END 2024-08-28 10:24 | disposition home or self-care (01) ==
PROVIDERS: PCP Family Medicine; Visit Provider Podiatrist Foot & Ankle Surgery
PROC: (CPT 20680; principal; 2024-08-28 08:00)
PROC: (CPT 28285; 2024-08-28 08:00)
DX: M20.5X1 Other deformities of toe(s) (acquired), right foot (principal); M20.41 Other hammer toe(s) (acquired), right foot; M20.42 Other hammer toe(s) (acquired), left foot; T84.84XA Pain due to internal orthopedic prosthetic devices, implants and grafts, initial encounter; Y82.8 Other medical devices associated with adverse incidents; E03.9 Hypothyroidism, unspecified
CPT/HCPCS: 20680 ×2; 28285; 73620; 76000; C1713; C9290; J0690; J2704; J3010; J3490; J7030; L3260

== ENCOUNTER → 2024-09-10 14:27 | Outpatient (BNVA) | payer OTHER, SELFPAY | PROVIDERS: PCP Family Medicine; Visit Provider Podiatrist Foot & Ankle Surgery | DX: Z98.890 Other specified postprocedural states (principal) | CPT/HCPCS: 73630 ==

== ENCOUNTER → 2024-10-08 13:20 | Outpatient (BNVA) | payer OTHER, SELFPAY | PROVIDERS: PCP Family Medicine; Visit Provider Podiatrist Foot & Ankle Surgery | DX: Z98.890 Other specified postprocedural states (principal); Z87.39 Personal history of other diseases of the musculoskeletal system and connective tissue | CPT/HCPCS: 73630 ==

== ENCOUNTER → 2024-11-05 13:14 | Outpatient (BNVA) | payer OTHER, SELFPAY | PROVIDERS: PCP Family Medicine; Visit Provider Podiatrist Foot & Ankle Surgery | DX: Z98.890 Other specified postprocedural states (principal) | CPT/HCPCS: 73630 ==

== ENCOUNTER → 2024-12-30 11:05 | Outpatient (BNVA) | payer OTHER, SELFPAY | PROVIDERS: PCP Family Medicine; Visit Provider Family Medicine | DX: E03.9 Hypothyroidism, unspecified (principal); E78.5 Hyperlipidemia, unspecified | CPT/HCPCS: 84443 ==

== ENCOUNTER 2025-03-23 07:22 | Outpatient (CLI) | payer OTHER, SELFPAY ==
--- NOTE | 2025-03-23 07:30 | CT_ITS ---
WS: [id number] CT LEFT KNEE, NONCONTRAST [facility] TECHNIQUE: Noncontrast CT of the LEFT knee to include the LEFT hip and ankle. CLINICAL INFORMATION: M17.12 - Unilateral primary osteoarthritis, left knee COMPARISON: None. DLP: 924.[address] scans at [facility] use at least one of these dose optimization techniques: automated exposure control; mA and/or kV adjustment per patient size (includes targeted exams where dose is matched to clinical indication); or iterative reconstruction. FINDINGS: Moderate tricompartment arthritis LEFT knee. Small suprapatellar effusion. Hypertrophic patella. Hypertrophic changes along the joint line. Popliteal cyst measuring 2.[address]/CT knee LT [facility] [id number] IMPRESSION: Images obtained for preoperative purposes.
== END 2025-03-23 07:23 | disposition home or self-care (01) ==
PROVIDERS: PCP Family Medicine; Visit Provider Student in an Organized Health Care Education/Training Program
DX: M17.12 Unilateral primary osteoarthritis, left knee (principal); M25.462 Effusion, left knee; M89.38 Hypertrophy of bone, other site; M71.22 Synovial cyst of popliteal space [Baker], left knee
CPT/HCPCS: 73700

== ENCOUNTER 2025-04-08 09:41 | Outpatient (CLI) | payer OTHER, SELFPAY ==
[2025-04-08 11:03] LABS: Basophils # 0.1 10^3/uL (0.0-0.1); Basophils % 1.2 %; Eosinophils # 0.1 10^3/uL (0.0-0.8); Hematocrit 40.5 % (36-47); Lymphocytes # 2.4 10^3/uL (0.8-4.8); Lymphocytes % 33.2 %; Mean Corpuscular HGB Conc 31.4 g/dL (30-55); Mean Corpuscular Hemoglobin 29.4 pg (27-33); Mean Corpuscular Volume 93.8 fl (85-98); Mean Platelet Volume 9.1 fL (7.4-10.4); Monocytes # 0.5 10^3/uL (0.2-0.9); Monocytes % 6.4 %; Neutrophils # 4.25 10^3/uL (1.8-7.7); Neutrophils % 57.9 %; Nucleated Red Blood Cells % 0 %; Platelet Count 285 10^3/cmm (157-399); Red Blood Count 4.32 10^6/uL (3.85-5.65); Red Cell Distribution Width 12.6 % (12.1-15.1); White Blood Count 7.34 10^3/uL (3.29-11.43)
[2025-04-08 11:13] LABS: Bilirubin Urine Negative (Negative); Blood Urine Negative (Negative); Glucose Urine UA Negative (Normal); Ketones Urine Negative (Negative); Leukocyte Esterase Urine 1+ (Negative); Nitrate Urine Negative (Negative); Protein Urine Negative (Negative); Specific Gravity, Urine 1.009 (1.005-1.030); Urine Appearance Clear (CLEAR); Urine Color Yellow (Yellow); pH Urine 5.5 (5-7)
[2025-04-08 11:18] LABS: Add Urine Microscopic? YES; Bacteria Urine Trace /hpf; Hyaline Casts Urine 0-4 /lpf; RBC Urine 0-2 /hpf (0-2); Squamous Epithelial Cell Urine 0-5 /hpf (0-5)
[2025-04-08 11:26] LABS: Add Urine Culture? No
[2025-04-08 11:28] LABS: Alanine Aminotransferase 21 U/L (0-33); Albumin Level 4.2 g/dL (3.5-5.2); Alkaline Phosphatase 86 U/L (35-105); Anion Gap 15.5 (5-19); Aspartate Amino Transferase 29 U/L (0-32); Blood Urea Nitrogen 17 mg/dL (8-23); Calcium 9.3 mg/dL (8.5-10.5); Carbon Dioxide 26 mmol/L (22-29); Chloride 101 mmol/L (98-107); Globulin 3.1 g/dL (1.3-4.6); Glucose 77 mg/dL (65-115); Osmolality Calculated 288 mOsm/kg (285-295); Potassium 3.5 mmol/L (3.5-5.1); Sodium 139 mmol/L (136-145); Total Bilirubin 0.3 mg/dL (0.15-1.2); Total Protein 7.3 g/dL (6.6-8.7)
== END 2025-04-08 09:42 | disposition home or self-care (01) ==
PROVIDERS: PCP Family Medicine; Visit Provider Student in an Organized Health Care Education/Training Program
DX: Z01.818 Encounter for other preprocedural examination (principal)
CPT/HCPCS: 36415; 80053; 81001; 85025

== ENCOUNTER → 2025-04-14 10:37 | Outpatient (BNVA) | payer OTHER, SELFPAY | PROVIDERS: PCP Family Medicine; Visit Provider Physician Assistant | DX: M17.12 Unilateral primary osteoarthritis, left knee (principal) | CPT/HCPCS: 73560; 73565 ==

== ENCOUNTER 2025-04-30 14:24 | Outpatient (CLI) | payer OTHER, SELFPAY ==
--- NOTE | 2025-04-30 | MM_ITS ---
WS: [id number] BILATERAL 3D TOMOSYNTHESIS DIGITAL SCREENING MAMMOGRAPHY WITH CAD CLINICAL INFORMATION: ANNUAL SCREENING HISTORY: Screening mammogram. No current complaints. COMPARISON: 2023 TECHNIQUE: Bilateral CC and MLO views. FINDINGS: Scattered fibroglandular densities bilaterally. No suspicious focal mass, asymmetry, calcifications, or architectural distortion. No evidence of malignancy. Dystrophic calcification anterior RIGHT breast. Incidental intramammary lymph node outer LEFT breast. MM/MM scr tomosynthesis [id number] IMPRESSION: DENSITY: There are scattered areas of fibroglandular density. BI-RADS: 2 - Benign. FOLLOW UP: 1 Year Follow-up Recommend return to annual screening mammography.
== END 2025-04-30 14:25 | disposition home or self-care (01) ==
PROVIDERS: PCP Family Medicine; Visit Provider Family Medicine
DX: Z12.31 Encounter for screening mammogram for malignant neoplasm of breast (principal); R92.323 Mammographic fibroglandular density, bilateral breasts; R92.1 Mammographic calcification found on diagnostic imaging of breast; D24.2 Benign neoplasm of left breast
CPT/HCPCS: 77063; 77067

== ENCOUNTER 2025-06-29 08:31 | Outpatient (CLI) | payer OTHER, SELFPAY ==
--- NOTE | 2025-06-29 08:38 | XR_ITS ---
WS: [id number] Exam: XR hip RT 2-3V wo/w pel* [id number] Date/Time of Exam: 06/29/2025 9:01 AM Reason For Exam: hip pain Moderate advanced degenerative narrowing of the RIGHT hip joint. No fracture identified. Normal soft tissues. Surgical clips in the RIGHT inguinal region. There is also moderate DJD of the LEFT hip. XR/XR hip RT 2-3V wo/w pel* [id number] IMPRESSION: 1. Moderately advanced degenerative change of the RIGHT hip. No fracture.
== END 2025-06-29 08:32 | disposition home or self-care (01) ==
PROVIDERS: PCP Family Medicine; Visit Provider Family Medicine
DX: M16.11 Unilateral primary osteoarthritis, right hip (principal); E78.5 Hyperlipidemia, unspecified; E03.9 Hypothyroidism, unspecified; M25.551 Pain in right hip
CPT/HCPCS: 73502; 80053; 80061; 84443; 85025

== ENCOUNTER 2025-07-08 14:37 | Outpatient (CLI) | payer OTHER, SELFPAY ==
--- NOTE | 2025-07-08 16:00 | CT_ITS ---
WS: [id number] CT LEFT KNEE, NONCONTRAST [facility] TECHNIQUE: Noncontrast CT of the LEFT knee to include the LEFT hip and ankle. CLINICAL INFORMATION: LEFT TOTAL KNEE ARTHROPLASTY DLP: 944.[address] scans at [facility] use at least one of these dose optimization techniques: automated exposure control; mA and/or kV adjustment per patient size (includes targeted exams where dose is matched to clinical indication); or iterative reconstruction. FINDINGS: Few sigmoid diverticuli. Partially visualized degenerative arthritis sacroiliac joints. Moderate joint space narrowing LEFT greater than RIGHT hips. Moderate tricompartmental arthritis LEFT knee. Hypertrophic patella. Hypertrophic changes along the joint line. Small suprapatellar effusion. Small lobulated popliteal cyst. CT/CT knee LT [facility] [id number] IMPRESSION: Images obtained for preoperative purposes.
== END 2025-07-08 14:38 | disposition home or self-care (01) ==
LOC: RAD 14:41
PROVIDERS: PCP Family Medicine; Visit Provider Physician Assistant
DX: M17.12 Unilateral primary osteoarthritis, left knee (principal); M25.462 Effusion, left knee; M71.22 Synovial cyst of popliteal space [Baker], left knee
CPT/HCPCS: 73700

== ENCOUNTER → 2025-07-14 08:39 | Outpatient (BNVA) | payer OTHER, SELFPAY | PROVIDERS: PCP Family Medicine; Visit Provider Family Medicine | DX: Z01.818 Encounter for other preprocedural examination (principal) | CPT/HCPCS: 81003 ==

== ENCOUNTER 2025-07-19 11:48 | Observation (INO) | payer OTHER, SELFPAY ==
[2025-07-19] VITALS (12 sets, daily range): BP systolic 99–151; BP diastolic 6–81; PULSE 63–77; RESP 15–20; TEMP 36.1–36.8; O2SAT 94–99; BMI 31.7
--- NOTE | 2025-07-19 08:22 | W.PM.OPSUD ---
Surgery/Procedure H&P Update DATE OF PROCEDURE: July 19, 2025 DATE H&P PERFORMED: 06/29/25 H&P UPDATE INFORMATION: I have reviewed H&P completed within last 30 days, I have examined patient prior to procedure and No changes to prior documentation PREOP DIAGNOSIS: Left knee DJD PRIMARY INDICATION FOR PROCEDURE: Left knee DJD PLANNED PROCEDURE: Operation Date: 07/19/25 10:40 Proposed Procedures p Eduardo Robot Total Knee Arthroplasty(Left) - Alan Aquino DO
[2025-07-19] MEDS: acetaminophen 1,000 MG/100 ML PIGGYBACK 400 MG IV ×2 (08:51→16:50)
[2025-07-19 09:17] LABS: Hematocrit 39.8 % (36-47); Hemoglobin 13.10 g/dL (11.27-16.99); Mean Corpuscular HGB Conc 32.9 g/dL (30-55); Mean Corpuscular Hemoglobin 30.9 pg (27-33); Mean Corpuscular Volume 93.9 fl (85-98); Nucleated Red Blood Cells % 0 %; Platelet Count 255 10^3/cmm (157-399); Red Blood Count 4.24 10^6/uL (3.85-5.65); White Blood Count 5.97 10^3/uL (3.29-11.43)
--- NOTE | 2025-07-19 09:22 | ANES.PREANE2 ---
Pre-Anesthetic Assessment Height/Weight: Height 1.73 m Weight 94.801 kg Temp Pulse Resp BP Pulse Ox O2 Del Method 98.2 F 69 15 151/81 99 Room Air 07/19/25 08:32 07/19/25 08:32 07/19/25 08:32 07/19/25 08:32 07/19/25 08:32 07/19/25 08:32 Preop Diagnosis: Left knee DJD Operation Date: 07/19/25 10:40 Proposed Procedures p Eduardo Robot Total Knee Arthroplasty(Left) - Alan Aquino DO Familial anesthetic complications: None Was Beta Michael taken within 24 hours: N/A Was Clonidine taken within 24 hours: N/A Last intake: Intake Last Liquid Date 07/18/25 Last Liquid Time 21:00 Last Solid Date 07/18/25 Last Solid Time 18:00 Social No alcohol and No tobacco Exam alert, oriented x 3, clear to auscultation bilaterally and regular rate & rhythm Airway Mallampati: Class I Dentition: full Metabolic Hyperlipidemia and Thyroid Disease Anesthetic Plan ASA status: 2 Anesthesia: Regional (specify below) Risk of > 500 ml blood loss (7ml/kg in children): No Medications/Allergies Home Medications ?Medication ?Instructions ?Recorded ?Confirmed ?Last Taken ?Type left knee medial loader unloader brace #1 ea 07/21/24 07/14/25 Unknown Rx atorvastatin 10 mg tablet (Lipitor) 10 mg PO DAILY #30 tabs 07/14/25 07/19/25 07/19/25 Rx levothyroxine 200 mcg tablet 200 mcg PO DAILY #30 tabs 07/14/25 07/19/25 07/19/25 Rx (Euthyrox) estradiol 1 mg tablet 1 mg PO DAILY 07/15/25 07/19/25 07/19/25 History acetaminophen 650 mg 650 mg PO Q12H PRN Pain 07/19/25 07/19/25 07/19/25 History tablet,extended release Allergies Allergy/AdvReac Type Severity Reaction Status Date / Time oxycodone (From Percocet) AdvReac ADR-Vomitin Verified 07/15/25 14:13 g Current Medications Generic Name Dose Route Start Last Admin Trade Name Freq PRN Reason Stop Dose Admin Sodium Chloride 1,000 mls @ 30 mls/hr 07/19/25 08:15 07/19/25 08:48 Sodium Chloride 0.9% IV 07/20/25 08:14 30 mls/hr .Q24H YARON Administration PFSH Anesthesia Medical History Hyperlipidemia Osteoarthritis of left knee Hypothyroid Anal polyp Thyroid crisis Surgical History S/P gastric sleeve procedure H/O thyroidectomy H/O: hysterectomy Social History Smoking and tobacco/nicotine status: never used tobacco/nicotine Alcohol intake: never Data Anesthesia 07/19/25 08:55 07/19/25 08:55 Short CBC 07/19/25 Range/Units 08:55 WBC 5.97 (3.29-11.43) 10^3/uL Hgb 13.10 (11.27-16.99) g/dL Hct 39.8 (36-47) % MCV 93.9 (85-98) fl Plt Count 255 (157-399) 10^3/cmm Neut % (Auto) 57.1 % Neut # (Auto) 3.41 (1.8-7.7) 10^3/uL Anesthesia Procedures Nerve Block Nerve Block 1: Main Anesthesia: spinal anesthesia block Time Out Performed: Yes Consent: requested by attending/covering physician, from patient, from other and patient agrees to proceed Anesthesia monitors applied: pulse oximetry, EKG, BP cuff and oxygen Nerve block position: supine Anesthetic Used: ropivicaine 0.5% (30 ml) and with decadron (4 mg) Ultrasound used to: recognize landmarks Interscalene/Femoral BLK: 4 stimuplex 21 g needle used for position and inplane approach, visualize local anesthetic spread and no vascular puncture identified Injection: neg aspiration of heme Patient Tolerated Procedure: well Complications: none
[2025-07-19] MEDS: ceFAZolin 2,000 MG in sodium chloride 0.9% (plus) 50 ML 100 MG IV ×2 (09:25→17:37)
[2025-07-19 09:35] LABS: Anion Gap 12.8 (5-19); Blood Urea Nitrogen 14 mg/dL (8-23); Calcium 9.1 mg/dL (8.5-10.5); Carbon Dioxide 28 mmol/L (22-29); Chloride 103 mmol/L (98-107); Creatinine Clr Calc Pharmacy 97.7465; Glucose 86 mg/dL (65-115); Osmolality Calculated 290 mOsm/kg (285-295); Potassium 3.8 mmol/L (3.5-5.1); Sodium 140 mmol/L (136-145)
[2025-07-19] MEDS: ROPivacaine 0.2% Premix 100 mL 200 MG INTRA-ARTI (10:35)
[2025-07-19] MEDS: tranexamic acid 1,000 mg/10mL SDV 2000 MG XX (10:35)
--- NOTE | 2025-07-19 11:30 | P.BOP_ITS ---
Date of Procedure: 07/19/2025 Surgeon: Alan Aquino DO [employer] Interpreter/Translator(s): Jovanny Aquino PA-C Procedure(s) performed: Left total knee arthroplasty?Eduardo robotic assisted Findings of the procedure(s): Patient underwent procedure as planned without issues or complications Estimated blood loss: 25 mL Specimen(s) removed: Tibia femur and patellar bone cuts removed Post-operative diagnosis: Left knee DJD
--- NOTE | 2025-07-19 11:31 | P.OP_ITS ---
Operative Report Date of procedure: July 19, 2025 Surgeon: Alan Aquino DO Computer Operator: Jovanny Aquino PA-C: PA was necessary for assistance in this case with leg positioning retraction and protection of neurovascular structures as well as assistance in implantation wound closure and dressing application. Procedure: Preoperative diagnosis: Left knee degenerative joint disease Post-op diagnosis: Same Procedure done: Left total knee arthroplasty, cemented?robotic assisted Eduardo Implants: Verito triathlon size 4 femur CR cemented?left [place] triathlon size? 4 tibia universal baseplate cemented Verito triathlon symmetric patella size 31 mm Verito triathlon polyethylene 10mm Surgeon: Alan Aquino DO Estimated blood?loss: 25 mL Tourniquet 53minutes IV fluids: 1000 mL Urine output: 600 mL Complications: None Condition: stable Disposition: floor Brief History: Patient is a 65-year-old female with with chronic?left knee degenerative joint disease.? Patient has been worked up in the outpatient setting in the orthopedic office at this point time through shared decision making given? [id number] arthritis as well as failed conservative treatment, and pt would?like to proceed with a?left total knee arthroplasty.? Through shared decision making elected to proceed with surgical intervention for?left total knee arthroplasty?Eduardo robotic assisted.? We talked about continued conservative treatment and surgical intervention as far as the risk benefits complications alternatives surgical and nonsurgical treatment options.? At this point time understanding patient risks with surgery she agrees to proceed with surgical intervention.? Once again? risk with surgery include but are not?limited to make it better make it worse blood clot, heart attack, stroke, on the table, infection, injury to nerves or vessels, persistent pain, arthrofibrosis, implant failure.? Understanding these risks patient agrees to proceed with surgical intervention consent was obtained in the preoperative holding area.? All questions answered. Procedure: Patient was seen and evaluated in the preoperative holding area.? Consent was reviewed and signed with patient with plan for?left total knee arthroplasty.? All questions answered.? Correct extremity marked.? Patient seen and evaluated by the anesthesia department and once cleared for surgery was taken back to the operative suite.? Patient was placed into a supine position on the OR table.? All bony prominences were well-padded.? Patient was appropriately secured to the bed.? Patient underwent anesthesia per the anesthesia department.? Patient received spinal anesthesia and? Dotson catheter was placed.? A nonsterile tourniquet was applied to the?left thigh.? At this point in time a final timeout performed.? Patient received appropriate preoperative antibiotics and TXA. Next the?left?lower extremity was then prepped and draped in standard orthopedic fashion. Esmarch tourniquet was used exsanguinate the?left?lower extremity.? Tourniquet was insufflated to 250 mmHg. A standard anterior incision was made over midline of the knee.? Sharp scalpel excision through skin and subcutaneous tissue full-thickness skin flaps were made.? Fascia was elevated off of the extensor retinaculum was stable with medial parapatellar arthrotomy was then made.? The performed standard sequential releases..? Immediately on entry into the joint patient was found to have severe eburnated bone and tricompartmental arthritic changes noted.? With significant osteophyte formation.? Next the the patella was then stuffed and the knee was then flexed.?? Zion was placed superiorly around the anterior aspect of the femur this was freed of synovium and I subsequently then placed by 2 femur pins to establish my femur arrays for the Eduardo robot.? These were then placed bicortically and? femur array was then appropriately secured with appropriate visualization.? Next attention was turned towards the tibial rays.? These were then drilled sequentially bicortically in parallel fashion and intraincisional.? I then placed my guide as well as my tibial array on in place.? This was appropriately secured and had excellent visualization with the Eduardo robot.? Next the tibial checkpoint as well as femur checkpoint were then placed.? At this point time I then subsequently established my head center as well as my medial?lateral malleoli as well as my checkpoints.? Next utilizing standard Eduardo technology I then mapped out the appropriate points and confirmation points around the femur as well as the tibia in standard fashion.? Once this was then done I then removed all osteophytes in preparation for dynamic testing.? All osteophytes were removed as well as I removed the ACL and the PCL was excised due to its significant tearing and degeneration noted.? At this point time the knee was brought into full extension and we performed our standard evaluation of our gap balancing stressing his?ligaments and extension as well as flexion appropriate adjustments were made to have appropriate gap balancing in both flexion and extension.? This plan for final cuts made implants were placed and cuts were made appropriate for correction of patient's deformity to ligamentous tolerances.? We get a preoperative plan evaluating our implants which was a size 4 femur and a size 4 tibia.? Next we brought in the Eduardo robot and sequentially made our femur cuts.? All excess bony cuts were then removed.? Finally we made our tibial cut.? Once this was done a standard PCL retractor was then placed into this position I excised the medial and?lateral meniscus.? The tibial cut was then subsequently removed all excess bony debris was removed.? I then utilized a?lamina pin machine tender and remove the posterior osteophytes.? At this point time sized the tibia and confirmed this was a size 4.? I utilized our blunt probe to establish rotation of tibial implant.? Once this was done I then placed my tibia size 4 trial in appropriate position and then subsequently placed tibial pins to hold this into place placed trialed up to a size 10mm poly as well as a size 4 femur which was appropriately impacted in place knee was then subsequently brought into extension. Trials were then assessed,? this was stable with varus valgus stress in extension as well as had symmetrical translation when brought into flexion demonstrating symmetrical gaps. I had excellent balance gaps in flexion and extension with varus and valgus stresses.? At this point I was satisfied with these implants these were then verified and opened on the back table size 4 tibia, size 4 femur,? size 10mm polythickness.? We did confirm appropriate gap balancing and stresses as well as alignment utilizing? Eduardo and were satisfied with this plan.? ?At this point time with my trials in place I then towel clip the patella everted this made appropriate measurements subsequently utilizing freehand technique performed by patellar resurfacing this was confirmed to be appropriate resection and subsequently sized to be a 31 mm symmetric.? My drill peg guides were then clamped and appropriate position and appropriate position in the patella for appropriate tracking and parallel with the joint.? Pegs were drilled trial implant was placed and the knee was then subsequently ranged and found to have excellent patellar tracking.? Femur pegs were then drilled.?At this point time all of our trial implants were removed.? All checkpoints as well as guidepins and arrays were removed and appropriate counts made.? Satisfied with our tibial placement rotation I then utilized the keel punch and prepped the tibia.? The wound bed? was thoroughly irrigated and dried and prepped for cementation.? Cement was mixed on the back table.? Once cement was ready this was then covered onto the tibia and the tibial baseplate was then impacted and all excess cement was removed.? Next the polyethylene was then impacted into place on the tibial baseplate.? Next cement was placed onto the femur as well as under the femur implants and impacted in to place and all excess cement was extruded and removed.? Knee was taken into full extension? to clear all excess cement was removed.? Warm saline was placed over the joint.? I then towel clip patella and dried for cementation. cemented the patella into place.? This was all clamped and the cement was allowed to cure.? Thorough irrigation performed with pulse?lavage.? I then placed my periarticular injection while the cement was curing.? Once cured the knee was taken through range of motion and had excellent stability and gaps were balanced in flexion and extension.? Tourniquet was then deflated. hemostasis satisfactory with electrocautery.? Next I then subsequently closed the capsule with Ethibond suture as well as a running strata fix suture.? Knee was then taken through range of motion 30 times.? Next the skin was then closed in?layered fashion of running stratifix sutures of deep and subcutenous tissue and skin.? ?closed in flexion and Prineo glue was then placed over the incision this allowed to cure.? Incision was covered with Silverlon, with ABDs soft roll and Bridger wrap.? Patient was then awakened from anesthesia and taken to PACU in stable condition. Disposition: Patient taken to PACU in stable condition will be admitted to the floor for pain control PT/OT weight-bear as tolerated?left?lower extremity dressing changes as needed, DVT prophylaxis. Pain control. Patient will receive appropriate postoperative antibiotics. patient will be seen today by the internal medicine team for medical management.? Patient will follow up with the office in 2 weeks.? Patient understands agrees with current plan.? All questions answered.
--- NOTE | 2025-07-19 11:46 | XR_ITS ---
WS: [id number] XR knee LT 1-2V 03810 REASON FOR EXAM: post L TKA FINDINGS: Total left knee arthroplasty. Components of the arthroplasty are intact and in proper position and alignment. No focal bone abnormality. XR/XR knee LT 1-2V 18110 IMPRESSION: Total left knee arthroplasty without abnormality.
--- NOTE | 2025-07-19 12:03 | PM.PACU ---
PACU note Narrative: Patient is a 65 female just underwent a left total knee arthroplasty. Pt transferred to PACU in stable condition. Dressing is dry. pt is awake and alert. pt can wiggle toes and plantarflex and dorsiflex foot. pt able to perform straight leg raise, Femoral nerve intact. Distal pulses are palpable toes are warm and well-perfused. Cap refill is normal and under 2 seconds. Sensation to foot is intact. Pain is controlled. Exam: awake Disposition: admitted
[2025-07-19] MEDS: chlorhexidine gluconate 0.12% Btl 473 mL 30 ML MUCOUS MEM ×3 (13:41→19:56)
--- NOTE | 2025-07-19 14:34 | PM.CONSULT ---
Providers/Reason For Consult Consulting Physician/Specialty*: Hospitalist Reason for Consult*: Medical management Attending Physician: Alan Aquino DO Primary Care Provider: Eladio Guillermo MD History of Present Illness History of Present Illness Shirley Jackson is a 65 year old woman with a history of hypothyroidism, hyperlipidemia, and osteoarthritis who underwent an uneventful left total knee replacement today under spinal anesthesia (estimated blood loss ~25 mL). Reports feeling okay post-operatively. Breathing is okay without shortness of breath; no nausea. Denies chest pain. Notes a cough currently. Denies fever, vomiting, diarrhea, muscle aches, headache, or rashes. Oxygen sensor reading may be affected by nail armenian. No history of venous thromboembolism. Denies sleep apnea and does not use continuous positive airway pressure (CPAP). Bee sting occurred a couple of days ago; appears to be improving. Tentative plan discussed for discharge home tomorrow if stable, with orthopedic follow-up in two weeks. Review of Systems Const: Denies: fever(s), chills, body aches or malaise ENMT: Denies: throat pain Card: Denies: chest pain, edema, pre-syncope or dyspnea on exertion Resp: Denies: dyspnea, productive cough, change in phlegm color or hemoptysis GI: Denies: abdominal pain, nausea, vomiting, diarrhea, constipation, hematochezia or melena : Denies: flank pain, urinary frequency or hematuria Musc: Denies: back pain, joint swelling or joint redness Skin/Breast: Denies: rash or new lesions Neuro: Denies: headache(s) or confusion Medications/Allergies Home Medications ?Medication ?Instructions ?Recorded ?Confirmed ?Last Taken ?Type left knee medial oil and gas principal brace #1 ea 07/21/24 07/14/25 Unknown Rx atorvastatin 10 mg tablet (Lipitor) 10 mg PO DAILY #30 tabs 07/14/25 07/19/25 07/19/25 Rx levothyroxine 200 mcg tablet 200 mcg PO DAILY #30 tabs 07/14/25 07/19/25 07/19/25 Rx (Euthyrox) estradiol 1 mg tablet 1 mg PO DAILY 07/15/25 07/19/25 07/19/25 History acetaminophen 650 mg 650 mg PO Q12H PRN Pain 07/19/25 07/19/25 07/19/25 History tablet,extended release Allergies Allergy/AdvReac Type Severity Reaction Status Date / Time oxycodone (From Percocet) AdvReac ADR-Vomitin Verified 07/15/25 14:13 g Current Medications Generic Name Dose Route Start Last Admin Trade Name Michelle PRN Reason Stop Dose Admin Chlorhexidine Gluconate 30 ml 07/19/25 13:00 07/19/25 13:41 Chlorhexidine Gluconate 0.12% Btl 473 Ml MUCOUS MEM 30 ml QID YARON Administration PFSH Acute PFSH: Medical History Hyperlipidemia Osteoarthritis of left knee Hypothyroid Anal polyp Thyroid crisis Surgical History S/P gastric sleeve procedure H/O thyroidectomy H/O: hysterectomy Social History Smoking and tobacco/nicotine status: never used tobacco/nicotine Alcohol intake: never Vitals/I&O/Wt Last Vital Signs Temp 97.7 F 07/19/25 14:30 Pulse 67 07/19/25 14:30 Resp 17 07/19/25 14:30 BP 112/71 07/19/25 14:30 Pulse Ox 96 07/19/25 14:30 O2 Del Method Room Air 07/19/25 14:30 07/18/25 07/19/25 07/19/25 22:59 06:59 14:59 Intake Total 1200 / 1200 Output Total 625 / 625 Balance 575 / 575 Weight last 48 hrs Weight 94.801 kg Physical Exam Narrative: Sitting up in chair. Comfortable. Pleasant, conversant. Const: COMMON NORMALS: patient oriented x3 and alert GENERAL APPEARANCE: cooperative ORIENTATION/CONSCIOUSNESS: Yes awake HENMT: COMMON NORMALS: oropharynx normal Neck/C-Spine: COMMON NORMALS: no JVD Resp: COMMON NORMALS: normal respiratory effort and clear to auscultation bilaterally AUSCULTATION: clear to auscultation bilaterally Cardio: COMMON NORMALS: no JVD, regular rhythm, S1 normal heart sound present, S2 normal heart sound present and No murmurs present (Cardio) RHYTHM: regular rhythm HEART SOUNDS: S1 normal heart sound present and S2 normal heart sound present GI: COMMON NORMALS: Normal to inspection, nondistended, normoactive bowel sounds present, Soft to palpation and non-tender PALPATION: Yes Soft to palpation Extremity: COMMON NORMALS: no joint enlargement and no pedal edema NARRATIVE EXTREMITY EXAM: LLE post op dressing, cold pack Neuro: COMMON NORMALS: patient oriented x3 and moves all extremities SENSORIUM/ORIENTATION: Yes alert Skin: COMMON NORMALS: no rashes or lesions noted GENERAL SKIN EXAM: no rashes or lesions noted Urinary Catheter Management: Dotson Latex: Cath Placed During This Visit: yes Urinary Catheter Date of Insertion: 07/19/25 Urinary Catheter Time of Insertion: 09:50 Data 07/19/25 08:55 07/19/25 08:55 A&P Assessment and plan 1. S/P total knee arthroplasty: Status post uneventful left total knee replacement under spinal anesthesia; vitals and labs reviewed; knee x-ray shows total left arthroplasty without abnormality. Reviewed vitals, CBC, BMP, knee x-ray, surgery note, discussed with orthopedic surgeon. - Post-operative reassessment - Physical therapy assessment - Tentative discharge home tomorrow if clinically stable - Orthopedic follow-up in two weeks - Provide and use incentive spirometer For acute post-operative pain : - Continue acetaminophen - [place] as needed for increased pain - IV Dilaudid as needed for severe breakthrough pain - Antiemetic as needed Plan: VTE prophylaxis planning : Increased risk of venous thromboembolism post-operatively; patient takes estradiol at home. - Initiate apixaban (Eliquis) for VTE prophylaxis tomorrow, pending reassessment of blood counts - Repeat blood counts in the morning Cough : Patient reports cough post-operatively; possible minimal aspiration. Lungs sound clear. No shortness of breath or chest pain; oxygen saturation 96% on room air per review, some difficulty with pulse oximetry due to nail armenian. Hypothyroidism: Continue levothyroxine HLD: Continue Lipitor Follow-up : Discharge and outpatient follow-up planning discussed. - Tentative plan to return home tomorrow if stable - Follow-up with orthopedics in two weeks - Discontinue IV fluids once tolerating oral intake PDMP PDMP Reviewed: Not Reviewed Consult Attestations Medical Necessity Statement: Continue postoperative care after left TKA. and High MDM includes amount and/or complexity of data reviewed/ordered [ resulted lab(s)/test(s), ordered lab(s)/test(s) and other healthcare professional discussion] and described risk of complication, morbidity or mortality of management as documented Diagnoses S/P total knee arthroplasty Z96.659
[2025-07-19] MEDS: tranexamic acid 1,000 MG/100 ML PREMIX 600 MG IV (16:45)
[2025-07-19] MEDS: sennosides-docusate Tablet 2 TAB PO (17:38)
[2025-07-19] MEDS: calcium carb-vit d 600mg/400unit 1 Tablet 1 EACH PO (17:39)
[2025-07-19] MEDS: mupirocin oint 22 gm 1 APPLIC NASAL (17:39)
[2025-07-19] MEDS: HYDROcodone-acetaminophen 5-325 mg Tablet 1 TAB PO (19:55)
[2025-07-20] MEDS: acetaminophen 1,000 MG/100 ML PIGGYBACK 400 MG IV ×2 (01:02→10:21)
[2025-07-20] MEDS: ceFAZolin 2,000 MG in sodium chloride 0.9% (plus) 50 ML 100 MG IV ×2 (01:43→09:09)
[2025-07-20 04:03] LABS: Hematocrit 35.9 % (36-47); Hemoglobin 11.60 g/dL (11.27-16.99); Mean Corpuscular HGB Conc 32.3 g/dL (30-55); Mean Corpuscular Hemoglobin 30.3 pg (27-33); Mean Corpuscular Volume 93.7 fl (85-98); Nucleated Red Blood Cells % 0 %; Platelet Count 232 10^3/cmm (157-399); Red Blood Count 3.83 10^6/uL (3.85-5.65); White Blood Count 17.55 10^3/uL (3.29-11.43)
[2025-07-20 04:04] VITALS: BP 125/62; PULSE 64; RESP 16; TEMP 36.7; O2SAT 96
[2025-07-20] MEDS: HYDROcodone-acetaminophen 5-325 mg Tablet 1 TAB PO ×3 (04:10→13:24)
[2025-07-20 05:57] LABS: Blood Urea Nitrogen 13 mg/dL (8-23); Calcium 9.1 mg/dL (8.5-10.5); Carbon Dioxide 22 mmol/L (22-29); Chloride 102 mmol/L (98-107); Creatinine Clr Calc Pharmacy 114.0375; Glucose 115 mg/dL (65-115); Osmolality Calculated 285 mOsm/kg (285-295); Sodium 137 mmol/L (136-145)
[2025-07-20 06:06] LABS: Anion Gap 16.9 (5-19); Potassium 3.9 mmol/L (3.5-5.1)
--- NOTE | 2025-07-20 08:10 | P.PN_ITS ---
Subjective 2 Subjective: Had a hard time sleeping at night due to pain bothering her. Denies trouble breathing. Cough has resolved. No nausea vomiting or diarrhea. Has not had a BM. Vitals/I&O/Wt Last Vital Signs Temp 98.1 F 07/20/25 04:04 Pulse 64 07/20/25 04:04 Resp 16 07/20/25 04:04 BP 125/62 07/20/25 04:04 Pulse Ox 96 07/20/25 04:04 O2 Del Method Room Air 07/20/25 04:04 07/19/25 07/20/25 07/20/25 22:59 06:59 14:59 Intake Total 250 / 1450 346.667 / 1796.667 Output Total 975 / 2600 400 / 3000 Balance -725 / -1150 -53.333 / -1203.333 Weight last 48 hrs Weight 94.801 kg Physical Exam 2 Const: COMMON NORMALS: patient oriented x3 and alert GENERAL APPEARANCE: c ooperative ORIENTATION/CONSCIOUSNESS: Yes awake HENMT: COMMON NORMALS: oropharynx normal Neck/C-Spine: COMMON NORMALS: no JVD Resp: COMMON NORMALS: normal respiratory effort and clear to auscultation bilaterally AUSCULTATION: clear to auscultation bilaterally Cardio: COMMON NORMALS: no JVD, regular rhythm, S1 normal heart sound present, S2 normal heart sound present and No murmurs present (Cardio) RHYTHM: regular rhythm HEART SOUNDS: S1 normal heart sound present and S2 normal heart sound present GI: COMMON NORMALS: Normal to inspection, nondistended, normoactive bowel sounds present, Soft to palpation and non-tender PALPATION: Yes Soft to palpation Extremity: COMMON NORMALS: no joint enlargement and no pedal edema N ARRATIVE EXTREMITY EXAM: LLE post op dressing, without bleeding, strikethrough Neuro: COMMON NORMALS: patient oriented x3 and moves all extremities S ENSORIUM/ORIENTATION: Yes alert Skin: COMMON NORMALS: no rashes or lesions noted GENERAL SKIN EXAM: no rashes or lesions noted Urinary Catheter Management: Dotson Latex: Cath Placed During This Visit: yes, but has since been removed by the nurse Reason for Continuing Indwelling Catheter: Decision to DC Catheter Urinary Catheter Date of Insertion: 07/19/25 Urinary Catheter Time of Insertion: 09:50 Date Urinary Catheter Removed: 07/19/25 Time Urinary Catheter Discontinued: 23:25 Data 07/20/25 03:56 07/20/25 05:30 A&P Assessment and plan 1. S/P total knee arthroplasty: Was bothered by pain overnight making it difficult to sleep. Continue pain control as needed. Continue incentive spirometer. Reviewed vitals, CBC, hemoglobin down to 11.6. Platelets normal. White count up to 17.55. Discussed with her. Discussed follow-up with primary provider for reassessment. She knows to seek medical attention in case of any worsening. Reviewed BMP. She has ambulated with PT, pending reassessment today. Likely may be discharging home today, pending orthopedic reassessment. Okay for discharge from hospital standpoint with outpatient follow-up. For acute post-operative pain in the hospital: - Continue acetaminophen - [place] as needed for increased pain - IV Dilaudid as needed for severe breakthrough pain - Antiemetic as needed Plan: VTE prophylaxis planning : Starting Eliquis. Increased risk of venous thromboembolism post-operatively; patient takes estradiol at home. Would hold for a few days perioperatively during initiation of Eliquis. - Initiate apixaban (Eliquis) for VTE prophylaxis Cough : Resolved. Patient reports cough post-operatively; possible minimal aspiration. Lungs sound clear. No shortness of breath or chest pain; oxygen saturation 96% on room air per review, some difficulty with pulse oximetry due to nail togolese. Hypothyroidism: Continue levothyroxine HLD: Continue Lipitor Follow-up : Discharge and outpatient follow-up planning discussed. - Tentative plan to return home tomorrow if stable - Follow-up with orthopedics in two weeks - Discontinue IV fluids PDMP PDMP Reviewed: Not Reviewed Attestations 2 Medical Necessity Statement*: Anticipated returning home today. Diagnoses S/P total knee arthroplasty Z96.659
[2025-07-20] MEDS: ESTRADIOL 1 MG PO (08:24)
[2025-07-20] MEDS: LEVOTHYROXINE 200 MCG 200 EACH PO (08:24)
[2025-07-20] MEDS: ATORVASTATIN 10 MG 10 EACH PO (08:24)
[2025-07-20] MEDS: mupirocin oint 22 gm 1 APPLIC NASAL (08:27)
[2025-07-20] MEDS: chlorhexidine gluconate 0.12% Btl 473 mL 30 ML MUCOUS MEM (08:27)
[2025-07-20] MEDS: calcium carb-vit d 600mg/400unit 1 Tablet 1 EACH PO (08:37)
[2025-07-20] MEDS: sennosides-docusate Tablet 2 TAB PO (08:37)
[2025-07-20] MEDS: multivitamin therapeutic Tablet 1 TAB PO (08:37)
[2025-07-20] MEDS: APIXABAN 2.5 MG TABLET PO (09:08)
[2025-07-20 10:00] VITALS: BP 110/70; PULSE 57; RESP 16; TEMP 36.4; O2SAT 98
--- NOTE | 2025-07-20 12:52 | P.DS_ITS ---
Discharge Providers Date of Admission: 07/19/25 11:48 Date of Discharge: July 20, 2025 Attending Provider at Admission: Alan Aquino DO Attending Provider at Discharge: Alan Aquino DO Consults: Dr. Philip?hospitalist Primary Care Provider: Eladio Guillermo MD Diagnoses at Discharge Discharge Diagnosis 1. S/P total knee arthroplasty: Reason for Visit Reason for Visit: M17.12 Brief History: Status post left total knee arthroplasty?Eduardo robotic assisted Hospital Course Hospital Course Patient presented to the preoperative holding area with plan for left total knee arthroplasty after patient has been worked up in the outpatient setting for failed conservative treatment of [left] knee degenerative joint disease. Once cleared by anesthesia for surgery patient subsequently was taken back to the operative suite underwent anesthesia per anesthesia department and then subsequently underwent a [left] total knee arthroplasty. Procedure was performed without any complications patient was taken to PACU in stable condition patient recovered well in PACU and then was admitted to the floor postoperatively internal medicine was consulted and on board for medical management and assistance with care. Patient received appropriate PT/OT, postoperative antibiotics, postoperative TXA, pain control, postoperative DVT prophylaxis. Elevation and ice. Patient encouraged for knee range of motion allowed weightbearing as tolerated to the operative lower extremity. Dressing was changed as needed, labs were monitored daily. Patient recovered well postoperatively and worked well and progressed well with therapy. It was determined on postoperative day 1 the patient was stable for discharge from an orthopedic standpoint and medicine. Patient was comfortable with discharge and plan was discharged home. Patient received appropriate discharge instructions as well as pain medication and DVT prophylaxis postoperatively. Given appropriate instructions for dressing management. Patient will follow-up with Dr. Aquino/orthopedics in the office in 2 weeks. All questions answered. Understand if there is any issues questions or concerns and contact the office. Physical Exam Narrative: Left knee examination: Dressing on in place, clean dry and intact. No evidence of saturation. Patient has normal postoperative swelling and tenderness to palpation to the knee. Compartments are soft compressible,'s calf soft and nontender. Sensations intact to light touch distally. Distal pulses are palpable. Patient is able to wiggle toes as well as plantarflex and dorsiflex ankle. Urinary Catheter Management: Dotson Latex: Cath Placed During This Visit: yes, but has since been removed by the nurse Reason for Continuing Indwelling Catheter: Decision to DC Catheter Urinary Catheter Date of Insertion: 07/19/25 Urinary Catheter Time of Insertion: 09:50 Date Urinary Catheter Removed: 07/19/25 Time Urinary Catheter Discontinued: 23:25 Discharge Data Studies Completed and Pending Completed Studies During Hospitalization Category Date Time Status XR knee LT 1-2V 13003 Routine Exams 07/19/25 11:46 Completed Pending at discharge Category Date Time Status Basic Metabolic Panel AM LABS Lab 07/21/25 04:00 Ordered Basic Metabolic Panel AM LABS Lab 07/22/25 04:00 Ordered Complete Blood Count w/Auto AM LABS Lab 07/21/25 04:00 Ordered Complete Blood Count w/Auto AM LABS Lab 07/22/25 04:00 Ordered Radiology Impressions Knee X-Ray 07/19/25 11:46 IMPRESSION: Total left knee arthroplasty without abnormality. Laboratory Results WBC 17.55 10^3/uL (3.29-11.43) H 07/20/25 03:56 RBC 3.83 10^6/uL (3.85-5.65) L 07/20/25 03:56 Hgb 11.60 g/dL (11.27-16.99) 07/20/25 03:56 Hct 35.9 % (36-47) L 07/20/25 03:56 MCV 93.7 fl (85-98) 07/20/25 03:56 MCH 30.3 pg (27-33) 07/20/25 03:56 MCHC 32.3 g/dL (30-55) 07/20/25 03:56 RDW 13.5 % (12.1-15.1) 07/20/25 03:56 Plt Count 232 10^3/cmm (157-399) 07/20/25 03:56 MPV 9.4 fL (7.4-10.4) 07/20/25 03:56 Neut % (Auto) 87.7 % 07/20/25 03:56 Lymph % (Auto) 7.1 % 07/20/25 03:56 [place] % (Auto) 4.5 % 07/20/25 03:56 Eos % (Auto) 0.0 % 07/20/25 03:56 Baso % (Auto) 0.2 % 07/20/25 03:56 Neut # (Auto) 15.41 10^3/uL (1.8-7.7) H 07/20/25 03:56 Lymph # (Auto) 1.2 10^3/uL (0.8-4.8) 07/20/25 03:56 [place] # (Auto) 0.8 10^3/uL (0.2-0.9) 07/20/25 03:56 Eos # (Auto) 0.0 10^3/uL (0.0-0.8) 07/20/25 03:56 Baso # (Auto) 0.0 10^3/uL (0.0-0.1) 07/20/25 03:56 Nucleated RBC % (auto) 0 % 07/20/25 03:56 Nucleated RBCs # 0.0 /100WBC 07/20/25 03:56 Sodium 137 mmol/L (136-145) 07/20/25 05:30 Potassium 3.9 mmol/L (3.5-5.1) 07/20/25 05:30 Chloride 102 mmol/L (98-107) 07/20/25 05:30 Carbon Dioxide 22 mmol/L (22-29) 07/20/25 05:30 Anion Gap 16.9 (5-19) 07/20/25 05:30 BUN 13 mg/dL (8-23) 07/20/25 05:30 Creatinine 0.6 mg/dL (0.5-0.9) 07/20/25 05:30 GFR Calculation 100.6 mL/min (90-130) 07/20/25 05:30 Glucose 115 mg/dL (65-115) 07/20/25 05:30 Calculated Osmolality 285 mOsm/kg (285-295) 07/20/25 05:30 Calcium 9.1 mg/dL (8.5-10.5) 07/20/25 05:30 Blood Type A Positive 07/19/25 08:55 Rho(D) Type Rh positive 07/19/25 08:55 Antibody Screen Negative 07/19/25 08:55 Vitals Last Vital Signs Temp 97.6 F 07/20/25 10:00 Pulse 57 L 07/20/25 10:00 Resp 16 07/20/25 10:00 BP 110/70 07/20/25 10:00 Pulse Ox 98 07/20/25 10:00 O2 Del Method Room Air 07/20/25 10:00 Discharge Plan Discharge Patient Disposition: Home Condition: Stable Prescriptions: New Eliquis 2.5 mg tablet 2.5 mg PO BID 14 Days Qty: 28 0RF hydrocodone-acetaminophen 10-325 mg tablet 1 tab PO Q6H PRN (Reason: pain) 7 Days Qty: 28 0RF cefadroxil 500 mg capsule 500 mg PO BID 7 Days Qty: 14 0RF Continued levothyroxine [Euthyrox] 200 mcg tablet 200 mcg PO DAILY Qty: 30 11RF atorvastatin [Lipitor] 10 mg tablet 10 mg PO DAILY Qty: 30 11RF acetaminophen 650 mg Tablet Extended Release 650 mg PO Q12H PRN (Reason: Pain) Held estradiol 1 mg tablet 1 mg PO DAILY Hold Instructions: Resume on 08/02/25. No Action (DME) left knee medial corporate responsibility officer brace See Rx Instructions .Route .MEDSUPPLY Qty: 1 0RF Rx Instructions: As directed Compression Molding Machine Tender OK for DC: Hospitalist Discharge Order = DC NOW: Discharge Order (Routine); Ordered 07/20/25 Ordered By: Alan Aquino Referrals: [facility]) [Outside] Alan Aquino DO [Physician, Orthopedics] - 08/03/25 2:15 pm Eladio Guillermo MD [Primary Care Provider, Family Practice] - 07/27/25 9:40 am Referral Note: Discharge Diet: Regular Discharge Activity: Limit activity as instructed Patient Instructions: Acute Wound Care (DC), Precautions after Total Joint Replacement Surgery (DC), Total Knee Replacement (DC), Opioid Safety, Post Anesthesia Care, Patient Portal & Eliseo Instructions Activity Restrictions/Additional Instructions: Ortho DC instructions Keep incisions clean dry and intact, leave Silverlon bandage dressings on in place for 7 days after that may rinse incisions with warm soapy water pat dry and redress with a dry dressing. Patient may weight-bear as tolerate to the operative extremity Utilize walker as needed Encourage knee range of motion Ice and elevate as needed for pain and swelling Take pain medication as prescribed Take antinausea medication as needed Pain medication can cause constipation. take [id number] stool softeners and or MiraLAX. Hold Estradiol for 2 weeks as this can have increase for blood clots Take antibiotic as prescribed for infection prevention Take prescribed Eliquis twice daily for the next 14 days for blood clot prevention May supplement for pain with Tylenol [id number] as needed(1000 mg every 8 hours-do not exceed more than 3000mg in 24-hour period) No baths or soaks Follow-up in the orthopedic office in 2 weeks Contact the office for any questions or concerns Follow-up with your primary provider postoperatively. Have them reassess your blood counts. Continue incentive spirometer after discharge. Seek medical attention in case of any worsening or new concerning symptoms. Discharge Attestations Time Spent in Discharge Care*: less than 30 min Quality Metrics Clinical Quality Measures [ No reported AMI, CVA or VTE this stay] Coding Level of Care Code Acute Code for Chg Fwd Diagnoses S/P total knee arthroplasty Z96.659
[2025-07-20 14:24] VITALS: BP 144/75; PULSE 62; RESP 16; TEMP 36.6; O2SAT 99
== END 2025-07-20 14:24 | disposition home or self-care (01) ==
LOC: OBGYN 11:49
PROVIDERS: Physician Assistant; Admitting Provider Student in an Organized Health Care Education/Training Program; PCP Family Medicine; Visit Provider Student in an Organized Health Care Education/Training Program
PROC: 8E0Y0CZ Robotic Assisted Procedure of Lower Extremity, Open Approach (ICD-10-PCS; CPT 27447; principal; 2025-07-19 10:40)
DX: M17.12 Unilateral primary osteoarthritis, left knee (principal); E03.9 Hypothyroidism, unspecified; E78.5 Hyperlipidemia, unspecified
CPT/HCPCS: 27447; 20985; 36415; 51702; 73560; 80048; 85025; 86850; 86900; 97110; 97116; 97161; 97165; A4216; C1713; C1776; G0378; J0131; J0169; J0690; J1100; J1885; J2250; J2704; J2795; J7030; J7120; J9999; L8699

== ENCOUNTER → 2025-08-03 14:08 | Outpatient (BNVA) | payer OTHER, SELFPAY | PROVIDERS: Visit Provider Physician Assistant | DX: Z98.890 Other specified postprocedural states (principal); Z96.659 Presence of unspecified artificial knee joint; G89.18 Other acute postprocedural pain | CPT/HCPCS: 73560; 73565 ==

== ENCOUNTER 2025-08-09 13:48 | Outpatient (RCR) | payer OTHER, SELFPAY | END 2025-09-03 23:59 | disposition home or self-care (01) | LOC: SPT 13:48 | PROVIDERS: Visit Provider Student in an Organized Health Care Education/Training Program | DX: M17.12 Unilateral primary osteoarthritis, left knee (principal) | CPT/HCPCS: 97110; 97140; 97161 ==

== ENCOUNTER → 2025-08-31 09:49 | Outpatient (BNVA) | payer OTHER, SELFPAY | PROVIDERS: PCP Family Medicine; Visit Provider Physician Assistant | DX: Z98.890 Other specified postprocedural states (principal); Z96.659 Presence of unspecified artificial knee joint | CPT/HCPCS: 73560; 73565 ==

== ENCOUNTER 2025-09-04 05:00 | Outpatient (RCR) | payer OTHER, SELFPAY | END 2025-10-03 23:59 | disposition home or self-care (01) | LOC: SPT 05:00 | PROVIDERS: PCP Family Medicine; Visit Provider Student in an Organized Health Care Education/Training Program | DX: M17.12 Unilateral primary osteoarthritis, left knee (principal) | CPT/HCPCS: 97110 ==

== ENCOUNTER 2025-10-04 05:00 | Outpatient (RCR) | payer OTHER, SELFPAY | END 2025-11-03 23:59 | disposition home or self-care (01) | LOC: SPT 05:00 | PROVIDERS: PCP Family Medicine; Visit Provider Student in an Organized Health Care Education/Training Program | DX: M17.12 Unilateral primary osteoarthritis, left knee (principal) | CPT/HCPCS: 97110 ==

== ENCOUNTER → 2025-10-12 11:00 | Outpatient (BNVA) | payer OTHER, SELFPAY | PROVIDERS: PCP Family Medicine; Visit Provider Student in an Organized Health Care Education/Training Program | DX: Z96.652 Presence of left artificial knee joint (principal) | CPT/HCPCS: 73560; 73565 ==